=== PATIENT | female | born 2000 | race Caucasian/White ===

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

== ENCOUNTER 2021-02-12 11:56 | Outpatient (CLI) | payer MEDICAID, SELFPAY ==
--- NOTE | 2021-02-12 11:45 | DI.US_ITS ---
Exam(s) US OB 1ST TRIMESTER EXAM: US OB 1ST TRIMESTER CLINICAL HISTORY: unknown dates, no care in 2nd trimester, O09.32. TECHNIQUE: Transabdominal obstetrical ultrasound performed. COMPARISON: No exams were available for comparison FINDINGS: Transabdominal obstetrical ultrasound performed. FINDINGS: Number of fetuses: One. movement was noted. heart rate: 158 bpm. Placental location: Posterior. No evidence of previa. Amniotic fluid index: Amount of fluid is within normal limits. BIOMETRIC DATA: Uterus: 13.2 x 6.0 x 12.2 cm Biometry BPD: 2.8cm consistent with 15 weeks. HC: 10.7cm consistent with 15 weeks 1 day. AC: 8.7cm consistent with 15 weeks. FL: 1.7cm consistent with 15 weeks. Composite Age: 15 weeks EDC by US: 08/06/2021 Heart Rate: 158BPM IMPRESSION: 1. Single live intrauterine gestation as above. 2. Estimated gestational age is 15 weeks. EDC by ultrasound is 08/06/2021. DATA REPOSITORY:
== END 2021-02-12 12:16 ==
PROVIDERS: PCP Family Medicine; Visit Provider Advanced Practice Midwife
DX: O99.322 Drug use complicating pregnancy, second trimester (principal); Z3A.15 15 weeks gestation of pregnancy
CPT/HCPCS: 76801

== ENCOUNTER 2021-02-20 03:35 | Outpatient (CLI) | payer MEDICAID, SELFPAY ==
[2021-02-20 10:40] LABS: Abs Immature Grans 0.16 10^3/uL (0.0-0.06); Absolute Eosinophil Count 0.28 10^3/uL (0.0-0.7); Absolute Lymphocyte Count 2.73 10^3/uL (1.2-3.4); Absolute Monocyte Count 0.95 10^3/uL (0.1-0.8); Basophils % 0.5; Eosinophils % 2.2; HCT 36.8 % (36.0-46.0); HGB 12.3 g/dL (11.2-15.7); Immature Grans % 1.2; Kit/Specimen SENT; Lymphocytes % 21.2; MCH 30.3 pg (27.0-33.0); MCHC 33.4 % (32.0-36.0); MCV 90.6 fL (80-95); MPV 9.7 fL (8.0-11.0); Monocytes % 7.4; Neutrophils % 67.5; Nucleated RBC 0 %; Platelet Count 295 10^3/uL (130-400); RBC 4.06 10^6/uL (3.93-5.22); RDW 13.1 % (11.7-14.6); RDW-SD 43.2 fL; WBC 12.86 10^3/uL (4.4-10.8)
[2021-02-20 10:43] LABS: Absolute Basophil Count 0.06 10^3/uL (0.0-0.2); Absolute Neutrophil Count 8.68 10^3/uL (1.2-6.7)
[2021-02-20 10:47] LABS: Glucose,1 Hr (Glucola) 103 mg/dL (80-140)
[2021-02-21 08:37] LABS: Hepatitis B Surface Ag Negative (Negative)
[2021-02-21 09:35] LABS: HIV-1/2 Ag & Ab Screen Negative (Negative)
[2021-02-21 09:46] LABS: Hepatitis C Ab w Rflx HCV PCR Negative (Negative)
[2021-02-21 10:52] LABS: Rubella IgG Ab (UVM) Positive (See Note); Varicella IgG Antibody Positive (See Note)
[2021-02-22 11:03] LABS: Syphilis Total Ab w/Reflex Nonreactive (Nonreactive)
[2021-02-22 11:30] LABS: AFP 49.7 ng/mL; Calculated age at EDD 20 years; Cigarette smoking status non-Smoker; GA used in risk estimate Scan estimate; IVF Pregnancy No; Initial or repeat testing Initial testing; Insulin dependent diabetes No; Maternal Weight 163 lbs; Number of Fetuses 1; Prev Pregnancy w/NTD No; RECOMMENDED FOLLOW UP None.; Results Summary Normal risk
[2021-03-06 16:39] LABS: Result Summary NEGATIVE; Specimen WB Whole Blood
== END 2021-02-20 03:36 | disposition home or self-care (01) ==
LOC: LBO 03:35
PROVIDERS: PCP Family Medicine; Visit Provider Advanced Practice Midwife
DX: Z34.92 Encounter for supervision of normal pregnancy, unspecified, second trimester (principal); Z11.4 Encounter for screening for human immunodeficiency virus [HIV]; Z11.59 Encounter for screening for other viral diseases; Z36.89 Encounter for other specified antenatal screening; Z01.84 Encounter for antibody response examination; Z3A.16 16 weeks gestation of pregnancy
CPT/HCPCS: 36415; 82950; 86787; 86803; 86850; 86900; 86901; 87340; 87389; 81220; 82105; 85025; 86762; 86780

== ENCOUNTER 2021-02-20 11:31 | Outpatient (REF) | payer MEDICAID, SELFPAY ==
[2021-02-20 13:52] LABS: *AMPHETAMINES SCREEN URINE Negative (Negative); *BARBITURATES SCREEN URINE Negative (Negative); *BENZODIAZEPINES SCREEN URINE Negative (Negative); Cannabinoids THC Negative (Negative); Cocaine Screen,Urine Negative (Negative); METHADONE URINE SCREEN Negative (Negative); OPIATES URINE SCREEN Negative (Negative)
[2021-02-20 13:56] LABS: Tricyclic Antidepressants Negative (Negative)
[2021-02-21 16:18] LABS: Chlamydia Result Negative (Negative); GC Result Negative (Negative)
[2021-02-26 13:04] LABS: Buprenorphine Negative ng/mL (Cutoff: 5.0); Norbuprenorphine Negative ng/mL (Cutoff: 2.5)
== END 2021-02-20 11:32 | disposition home or self-care (01) ==
LOC: LBN 11:31
PROVIDERS: PCP Family Medicine; Visit Provider Advanced Practice Midwife
DX: Z34.92 Encounter for supervision of normal pregnancy, unspecified, second trimester (principal); Z11.3 Encounter for screening for infections with a predominantly sexual mode of transmission; Z3A.16 16 weeks gestation of pregnancy
CPT/HCPCS: 80307; 87491; 87591; 87086

== ENCOUNTER 2021-03-07 01:43 | Outpatient (CLI) | payer MEDICAID, SELFPAY ==
--- NOTE | 2021-03-07 08:15 | DI.US_ITS ---
Exam(s) US OB 2-3 TRIMESTER EXAM: US OB 2-3 TRIMESTER CLINICAL HISTORY: 18 wk anatomy survey,Z3A.15. TECHNIQUE: Transabdominal obstetrical ultrasound was performed. COMPARISON: US US OB 1ST TRIMESTER from 02/12/2021 FINDINGS: There is a single viable intrauterine gestation with cardiac activity identified-150 bpm. Amniotic fluid: There is a normal amount of amniotic fluid. Placental location: The placenta is posterior grade 1,with no evidence of placenta previa.Distance fr om the tip of placenta to the internal cervical os is 3.6 cm on today's study. ANATOMY: A 3 vessel umbilical cord is seen. A four-chamber cardiac view was obtained. Right and left ventricular outflow tracts were imaged. There are no obvious abnormalities of the spinal column evident. There is no obvious abnormal ity of the anterior abdominal wall. stomach and urinary bladder are identified and there is no evidence of hydronephrosis. No abnormalities of the upper lip region are identified. No evidence of choroid plexus cysts i n the brain. Dating parameters place this at approximately 18 weeks and 1 day gestational age. BPD measures 18 weeks and 1 day HC measures 18 weeks and 0 days AC measures 18 weeks and 2 days FL measures 18 weeks and 2 days Estimated weight is 230 gm-0 pounds, 8 ounces. Fetus is at the 42nd percentile on the Hadlock scale. IMPRESSION:: Single viable intrauterine gestation which is approximately 18 weeks and 1 day gestatio nal age, implying an JACOB of August 07, 2021. There are no obvious anomalies evident on today's study. The placenta is posterior with no evidence of placenta previa. There is a normal amount of amniotic fluid. DATA REPOSITORY:
== END 2021-03-07 02:03 ==
PROVIDERS: PCP Family Medicine; Visit Provider Advanced Practice Midwife
DX: Z36.9 Encounter for antenatal screening, unspecified (principal); Z3A.18 18 weeks gestation of pregnancy
CPT/HCPCS: 76805

== ENCOUNTER 2022-04-15 13:49 | Outpatient (REF) | payer MEDICAID, SELFPAY | END 2022-04-15 13:50 | disposition home or self-care (01) | LOC: LBN 13:49 | PROVIDERS: PCP Family Medicine; Visit Provider Nurse Practitioner Family | DX: J02.9 Acute pharyngitis, unspecified (principal) | CPT/HCPCS: 87070 ==

== ENCOUNTER 2022-10-02 02:42 | Outpatient (CLI) | payer MEDICAID, SELFPAY ==
[2022-10-02 15:55] LABS: Panorama Kit Sent via Fed Ex
[2022-10-02 16:09] LABS: Abs Immature Grans 0.04 10^3/uL (0.0-0.06); Absolute Basophil Count 0.06 10^3/uL (0.0-0.2); Absolute Eosinophil Count 0.22 10^3/uL (0.0-0.7); Absolute Lymphocyte Count 2.14 10^3/uL (1.2-3.4); Absolute Monocyte Count 0.45 10^3/uL (0.1-0.8); Absolute Neutrophil Count 5.82 10^3/uL (1.2-6.7); Basophils % 0.7; Eosinophils % 2.5; HCT 35.6 % (36.0-46.0); HGB 12.3 g/dL (11.2-15.7); Immature Grans % 0.5; Lymphocytes % 24.5; MCH 30.4 pg (27.0-33.0); MCHC 34.6 % (32.0-36.0); MCV 88 fL (80-95); MPV 9.9 fL (8.0-11.0); Monocytes % 5.2; Neutrophils % 66.6; Platelet Count 265 10^3/uL (130-400); RBC 4.04 10^6/uL (3.93-5.22); RDW 13.1 % (11.7-14.6); RDW-SD 41.9 fL; WBC 8.73 10^3/uL (4.4-10.8)
[2022-10-02 16:43] LABS: Glucose,1 Hr (Glucola) 184 mg/dL (80-140)
[2022-10-06 10:11] LABS: Hepatitis B Surface Ag Negative (Negative)
[2022-10-06 10:47] LABS: Rubella IgG Ab (UVM) Positive (See Note)
[2022-10-06 11:15] LABS: Hepatitis C Ab w Rflx HCV PCR Negative (Negative)
[2022-10-06 12:47] LABS: Varicella IgG Antibody Equivocal (See Note)
== END 2022-10-02 02:43 | disposition home or self-care (01) ==
LOC: LBO 02:42
PROVIDERS: PCP Family Medicine; Visit Provider Advanced Practice Midwife
DX: Z34.91 Encounter for supervision of normal pregnancy, unspecified, first trimester (principal); Z3A.11 11 weeks gestation of pregnancy
CPT/HCPCS: 36415; 82950; 86787; 86803; 86850; 86900; 86901; 87340; 85025; 86762

== ENCOUNTER 2022-10-02 16:04 | Outpatient (REF) | payer MEDICAID, SELFPAY ==
--- NOTE | 2022-10-02 14:30 | PAPFT_PTH ---
PATIENT: Ольга Beniets LOC: [facility] U#:[id number] AGE/SX: 22/F ROOM: RE10/02/[address]: Hilary Hayes : 2000 BED: DIS: 10/02/2022 SPEC #: [id number] RECD: 10/02/22 17:22 STATUS: MERNA REQ #: [id number] CHRISTINA: 10/02/22 14:[address]: Hilary Hayes DEPT[facility] Cytology RECD BY: Samaria Alatorre ENTERED: 10/02/22 17:23 SP TYPE: PAPFT OTHR DR: Norma Leslie V Tissues: 1 - CX/ENDOCX FOR PAP SMEARS Procedures: PAP THIN PREP/UVM Screening Comments: [id number]
[2022-10-02 17:21] LABS: *AMPHETAMINES SCREEN URINE Negative (Negative); *BARBITURATES SCREEN URINE Negative (Negative); *BENZODIAZEPINES SCREEN URINE Negative (Negative); Cannabinoids THC Negative (Negative); Cocaine Screen,Urine Negative (Negative); METHADONE URINE SCREEN Negative (Negative); OPIATES URINE SCREEN Negative (Negative)
[2022-10-02 17:22] LABS: Tricyclic Antidepressants Negative (Negative)
[2022-10-04 14:20] LABS: Chlamydia Result Negative (Negative); GC Result Negative (Negative)
[2022-10-08 10:41] LABS: Buprenorphine Negative ng/mL (Cutoff: 5.0); Norbuprenorphine Negative ng/mL (Cutoff: 2.5)
== END 2022-10-02 16:05 | disposition home or self-care (01) ==
LOC: LBN 16:04
PROVIDERS: PCP Family Medicine; Visit Provider Advanced Practice Midwife
DX: O26.891 Other specified pregnancy related conditions, first trimester (principal); N89.8 Other specified noninflammatory disorders of vagina; Z11.3 Encounter for screening for infections with a predominantly sexual mode of transmission; Z12.4 Encounter for screening for malignant neoplasm of cervix; Z3A.11 11 weeks gestation of pregnancy
CPT/HCPCS: 80307; 80348; 87491; 87591; 88142; 87086; 87480; 87510; 87660

== ENCOUNTER 2022-11-04 02:46 | Outpatient (CLI) | payer MEDICAID, SELFPAY ==
[2022-11-06 14:39] LABS: AFP 35.5 ng/mL; Cigarette smoking status non-Smoker; GA used in risk estimate Scan estimate; IVF Pregnancy No; Initial or repeat testing Initial testing; Insulin dependent diabetes No; Maternal Weight 174 lbs; Number of Fetuses 1; Physician Phone Number 802-748-7300; Prev Pregnancy w/NTD No; RECOMMENDED FOLLOW UP None.; Results Summary Normal risk
== END 2022-11-04 02:47 | disposition home or self-care (01) ==
LOC: LBO 02:46
PROVIDERS: Advanced Practice Midwife; PCP Family Medicine; Visit Provider Obstetrics & Gynecology
DX: Z34.92 Encounter for supervision of normal pregnancy, unspecified, second trimester (principal); Z36.89 Encounter for other specified antenatal screening; Z3A.16 16 weeks gestation of pregnancy
CPT/HCPCS: 36415; 82105

== ENCOUNTER 2022-11-19 00:39 | Outpatient (CLI) | payer MEDICAID, SELFPAY ==
--- NOTE | 2022-11-19 08:15 | DI.US_ITS ---
Exam(s) US OB 2-3 TRIMESTER EXAM: US OB 2-3 TRIMESTER CLINICAL HISTORY: ,Z34.90. TECHNIQUE: Transabdominal obstetrical ultrasound performed. COMPARISON: US US OB 2-3 TRIMESTER from 03/07/2021 FINDINGS: Number of fetuses: 1 position: Varied throughout the examination. heart rate: 148 bpm Placental location: ANTERIOR No evidence of previa. Amniotic fluid index: Amount of fluid is within normal limits. ANATOMICAL SURVEY: Within normal limits. BIOMETRIC DATA: BPD: 3.85 cm, 17 weeks 5 days HC: 15.17 cm, 18 weeks 1 day AC: 14.02 cm, 19 weeks 3 days FL: 2.88 cm, 18 weeks 6 days Cisterna magna: 4.7 mm Cerebellum: 1.72 cm EFW: 268.74 g, 0.59 lb, 86 % Composite Age: 18 weeks 4 days JACOB: 04/18/2023 Heart Rate: 148 bpm ANATOMICAL SURVEY: Four-chambered heart: Unremarkable. RVOT: Unremarkable. LVOT: Unremarkable. Three-vessel cord: Unremarkable. Cord insertion: Unremarkable. Bilateral kidneys: Unremarkable. urinary bladder: Unremarkable. Left-sided stomach: Unremarkable. spine: Unremarkable. ventricles: Unremarkable. Posterior fossa: Unremarkable Two arms and two legs: Unremarkable. nose/lips: Unremarkable. Palate: Unremarkable IMPRESSION: 1. Single live intrauterine gestation as above. 2. Normal anatomic survey. DATA REPOSITORY:
== END 2022-11-19 00:59 ==
LOC: DI 00:40
PROVIDERS: PCP Family Medicine; Visit Provider Advanced Practice Midwife
DX: Z34.90 Encounter for supervision of normal pregnancy, unspecified, unspecified trimester (principal)
CPT/HCPCS: 76805

== ENCOUNTER 2023-03-11 20:31 | Outpatient (CLI) | payer MEDICAID, SELFPAY ==
[2023-03-11 20:49] VITALS: BP 122/69; PULSE 91; RESP 18; TEMP 36.6
[2023-03-11 21:00] VITALS: PULSE 85; O2SAT 98
[2023-03-11 21:03] VITALS: BP 122/69; PULSE 95; TEMP 37.1
[2023-03-11 21:05] VITALS: PULSE 98; O2SAT 97
[2023-03-11 21:14] LABS: ROM Plus Negative
--- NOTE | 2023-03-11 21:16 | W.PM.PROGNOT ---
Date of Service Date of service: 03/11/23 Time of Service: 21:16 Assessment and Plan Assessment and plan (1) : Status: Acute Assessment and plan: at 34 weeks and 2 days. Abdominal discomfort, not in labor. Reactive nonstress test, category 1 heart rate tracing. Discharge home. Follow-up as scheduled. Labor precautions given. Subjective Subjective Interval history since last seen: Patient came to the center after she arrived to the hospital via ambulance. She called the ambulance as she was having what she perceived to be contractions. She has no leakage of fluid. The baby's been moving and active. She was seen, evaluated, ROM plus obtained, NST performed. heart rate tracing has a category 1 strip, baseline heart rate of 150, no contractions palpable or visualized. Cervical exam is closed and thick. 1+ is negative. She will be discharged home to follow-up as scheduled. Exam Const General: cooperative and no acute distress Eyes General: appearance normal, both eyes and all related structures Resp Effort & Inspection: normal respiratory effort, no audible wheezes, no cough and not labored Cardio Rate: regular rate Rhythm: regular rhythm Extrem General: normal to inspection and no clubbing, cyanosis or edema Objective Last Vital Signs Temp 97.8 F 03/11/23 20:49 Pulse 98 H 03/11/23 21:05 Resp 18 03/11/23 20:49 BP 122/69 03/11/23 20:49 Pulse Ox 97 03/11/23 21:05 Laboratory Results - last 24 hr 03/11/23 20:48 Membranes Rupture Negative Time Spent with Patient Time Spent with Patient: <25 minutes Time was spent: preparing to see the patient(eg.review tests), obtaining and/or reviewing separately otained hiistory, ordering medications,tests, procedures, referring, communicating with other health respiratory care assistant, indepentently interpreting results and counseling the patient
--- NOTE | 2023-03-11 21:27 | W.OBNST ---
Date of service: 03/11/23 Time of Service: 21:27 NST Evaluation Reason for NST Reasons for Nonstress Test: LABOR Gestational Age Gestational Age in Weeks and Days: 34 Weeks and 2Days Test and Monitor Explained Test/Monitor Explained: Test Explained Vital Signs Blood Pressure: 122/69 Pulse: 95 Temperature: 98.7 F Urine Results Urine Protein: Negative Urine Ketones: Negative Urine Glucose: Negative Urine Blood: Negative NST Information Date on Monitor: 03/11/23 Time on Monitor: 20:28 NST Interventions: PO Hydration NST Evaluation Patient States Movement: Present FHR Baseline: 150 Variability: Moderate 6-25 bpm Accelerations: 15x15 Decelerations: None NST Results: Reactive Note Ultrasound Done: N/A. NST Note Note: Reactive, category 1 NST. Not in labor NST Reviewed and Verified by: Saba Murry
[2023-03-11 21:28] VITALS: BP 122/69; PULSE 95; TEMP 37.1
--- NOTE | 2023-03-14 17:17 | W.ED.GENAD ---
Discharge Plan Disposition Patient Disposition: HOME Discharge Details Attending Provider: Saba Murry Primary Care Provider: Norma Leslie V Home Meds and New Rx's Prescriptions: No Action (DME) lancets [FreeStyle Lancets] 28 gauge misc See Rx Instructions .Route Qty: 100 4RF Rx Instructions: QID (DME) FreeStyle Lite Strips Strip See Rx Instructions .Route Qty: 100 4RF Rx Instructions: QID Vitamin Plus Low Iron 27 mg iron- 1 mg tablet 1 tab PO DAILY Qty: 90 4RF (DME) lancets 33 gauge misc See Rx Instructions .Route Qty: 100 5RF Rx Instructions: QID albuterol sulfate [ProAir HFA] 90 mcg/actuation HFA aerosol inhaler 2 puff inhalation Q6H PRN (DME) blood-glucose meter [FreeStyle Lite Meter] Kit See Rx Instructions .Route Qty: 1 0RF Rx Instructions: As directed alcohol swabs [Alcohol Pads] Pads, Medicated 1 pad topical QID Qty: 100 4RF Discharge Data Discharge Date/Time-TO BE ENTERED AT DEPARTURE: 03/11/23 20:32 Medical Decision Making 23-year-old female presents 34 weeks 's with report of contractions per EMS STREET ENGINEER was called and request for patient to go directly to labor and delivery Preliminary assessment was performed by me, patient appears in acute distress, she is dry heaving in the room, her vitals are stable, heart rate was 149 Basic external vaginal exam was performed without any obvious Confirmed with OB that patient is able to be transferred directly to the floor, she was brought up to labor and delivery for further evaluation and transferred to the care of the OB team after consent and discharge from the emergency department she will be HPI HPI Narrative: This 23-year-old female presents with EMS 34 weeks 2 para 1 with reported contractions every 2 minutes which started approximately an hour and a half ago. Patient states she is nauseous and vomiting. Denies any vaginal bleeding. Related Data Home Medications Medication Instructions Recorded Confirmed albuterol sulfate 90 mcg/actuation 2 puff inhalation Q6H PRN 01/30/21 03/09/23 aerosol inhaler (ProAir HFA) vitamin with calcium 1 tab PO DAILY #90 tabs 09/17/22 03/09/23 no.72-iron 27 mg-folic acid 1 mg tablet ( Vitamins Plus Low Iron) alcohol swabs (Alcohol Pads) 1 pad topical QID QID #100 ea 10/03/22 03/09/23 blood-glucose meter (FreeStyle #1 ea 10/03/22 03/09/23 Lite Meter kit) blood sugar diagnostic (FreeStyle #100 ea 10/24/22 03/09/23 Lite Strips) lancets 28 gauge (FreeStyle #100 ea 10/24/22 03/09/23 Lancets) lancets 33 gauge #100 ea 12/02/22 03/09/23 Previous Rx's Medication Instructions Recorded vitamin with calcium 1 tab PO DAILY #90 tabs 09/17/22 no.72-iron 27 mg-folic acid 1 mg tablet ( Vitamins Plus Low Iron) alcohol swabs (Alcohol Pads) 1 pad topical QID QID #100 ea 10/03/22 blood-glucose meter (FreeStyle #1 ea 10/03/22 Lite Meter kit) blood sugar diagnostic (FreeStyle #100 ea 10/24/22 Lite Strips) lancets 28 gauge (FreeStyle #100 ea 10/24/22 Lancets) lancets 33 gauge #100 ea 12/02/22 Allergies Allergy/AdvReac Type Severity Reaction Status Date / Time enviornmental Allergy Intermediate Itching Uncoded 03/09/23 14:52 General ILANA: 1 PFSH All Active Problems (Updated 11/19/22 @ 12:42 by Brie Ramey MD) Allergic rhinitis due to pollen (Chronic 11/30/17) ADHD (Chronic) Pt reports DX by PCP since childhood (1st grade). Dr. Lani Singleton - [facility]. New PCP @ [facility] most recent prescriber. Depression (Acute) Pt reports DX- Dr. Singleton at [facility] age 7/8 (?) Most recent prescriber through new PCP at [facility]. Vomiting (Acute) (Acute) Elevated glucose (Acute) History of gestational diabetes in prior , currently (Acute) Susceptible to varicella (non-immune), currently (Acute) Medical History (Updated 11/19/22 @ 12:42 by Brie Ramey MD) Exercise-induced asthma Surgical History No significant past surgical history Family History Maternal Grandmother Asthma Diabetes Maternal Aunt Depression Diabetes Maternal Grandfather Diabetes Maternal Aunt Heart disease Maternal Great Aunt Maternal Grandfather Hyperlipidemia Hypertension Stroke Other Breast cancer Social History Smoking/Tobacco Use Status: Never Smoking risk assessment performed?: Yes Alcohol Intake: never Drug use: Never Do you feel safe at home: Yes Do you feel safe in your relationship?: Yes Female Reproductive History Menstrual Age of Menarche: 10 control method: pills History History 2 Para 1 Hx # Term Pregnancies 1 Multiple births 0 Hx # Pregnancies 0 Ectopic pregnancies 0 AB induced 0 Hx Number of Living Children 1 AB spontaneous 0 Past Pregnancies Del. Date GA/Weeks # Preg Succ Route Wgt Sex Labor Lgth Anesthesia Location [facility] 08/05/21 39 No Yes vaginal 3118.448 g Male prodromal labor [place] [facility] [place] Date: 08/05/21 Last Updated by: Hilary Hayes CNM Gestational Diabetes Aneudy Precipitous delivery reported Course Vital Signs Vital signs: Vital Signs Temperature 36.6 C 03/11/23 20:49 Pulse 91 H 03/11/23 20:49 Respiratory Rate 18 03/11/23 20:49 Blood Pressure 122/69 03/11/23 20:49 Temperature 36.6 C 03/11/23 20:49 Temperature 37.1 C 03/11/23 21:28 Temperature Source Oral 03/11/23 20:49 Pulse 98 H 03/11/23 21:05 Pulse 95 03/11/23 21:28 Respiratory Rate 18 03/11/23 20:49 Blood Pressure 122/69 03/11/23 20:49 Blood Pressure 122/69 03/11/23 21:28 Pulse Oximetry 97 03/11/23 21:05 Oxygen Delivery Method Room Air 03/11/23 20:49 Oxygen Flow Rate 0 03/11/23 20:49 Pain Level 3 03/11/23 20:49 Lab/Test Results Lab/Test Results: Laboratory Tests Range/Units 03/11/23 20:48 Membranes Rupture Negative
== END 2023-03-11 20:32 | disposition home or self-care (01) ==
PROVIDERS: PCP Family Medicine; Visit Provider Obstetrics & Gynecology
DX: O60.03 Preterm labor without delivery, third trimester (principal); Z3A.34 34 weeks gestation of pregnancy
CPT/HCPCS: 84112; 59025; G0378

== ENCOUNTER 2023-03-27 13:57 | Outpatient (REF) | payer MEDICAID, SELFPAY | END 2023-03-27 13:58 | disposition home or self-care (01) | LOC: LBN 13:57 | PROVIDERS: PCP Family Medicine; Visit Provider Obstetrics & Gynecology Gynecology | DX: Z34.93 Encounter for supervision of normal pregnancy, unspecified, third trimester (principal); Z3A.36 36 weeks gestation of pregnancy; Z36.85 Encounter for antenatal screening for Streptococcus B | CPT/HCPCS: 87081 ==

== ENCOUNTER 2023-03-31 15:37 | Outpatient (CLI) | payer MEDICAID, SELFPAY ==
[2023-03-31 15:43] VITALS: BP 121/79; PULSE 114; TEMP 36.7
[2023-03-31 16:02] VITALS: BP 121/79; PULSE 114
[2023-03-31 16:38] LABS: ROM Plus Negative
--- NOTE | 2023-04-06 17:35 | W.OBNST ---
Date of service: 03/31/23 Time of Service: 17:36 NST Evaluation Reason for NST Reasons for Nonstress Test: OTHER, SEE COMMENT Reason for NST Other: Possible Rupture of Membranes Gestational Age Gestational Age in Weeks and Days: 37 Weeks and 1Days Test and Monitor Explained Test/Monitor Explained: Test Explained, Monitor Explained and Patient Verbalized Understanding Vital Signs Blood Pressure: 121/79 Pulse: 114 Temperature: 98.1 F Urine Results Urine Protein: Negative Urine Ketones: Positive Urine Glucose: Negative Urine Blood: Positive NST Information Date on Monitor: 03/31/23 Time on Monitor: 16:01 Date off Monitor: 03/31/23 Time off Monitor: 16:34 Total Time on Monitor: 33 NST Interventions: PO Hydration Contraction Frequency: 0 NST Evaluation Patient States Movement: Present FHR Baseline: 145 Variability: Moderate 6-25 bpm Accelerations: 15x15 Decelerations: None NST Results: Reactive Note Ultrasound Done: N/A. NST Note Note: Patient presented with concerns regarding rupture membranes. She underwent evaluation including ROM plus vaginal exam. No evidence of rupture membranes she was discharged home with instructions to follow-up for routine scheduled OB appointments. NST Reviewed and Verified by: Lia Carrasco
[2023-04-06 17:36] VITALS: BP 121/79; PULSE 114; TEMP 36.7
== END 2023-03-31 16:44 | disposition home or self-care (01) ==
LOC: BCD 15:39 → OBS 15:42
PROVIDERS: PCP Family Medicine; Visit Provider Obstetrics & Gynecology Gynecology
DX: O47.1 False labor at or after 37 completed weeks of gestation (principal); Z3A.37 37 weeks gestation of pregnancy
CPT/HCPCS: 84112; 59025

== ENCOUNTER 2023-04-13 18:30 | Outpatient (CLI) | payer MEDICAID, SELFPAY ==
[2023-04-13 19:01] VITALS: BP 117/73; PULSE 85
[2023-04-13 19:23] VITALS: BP 111/73; PULSE 65; TEMP 36.8
[2023-04-13 20:10] LABS: ROM Plus Negative
[2023-04-13 20:36] VITALS: BP 111/73; PULSE 65; TEMP 36.8
--- NOTE | 2023-04-14 05:43 | W.OBNST ---
Date of service: 04/13/23 Time of Service: 19:00 NST Evaluation Reason for NST Reasons for Nonstress Test: FALSE LABOR Gestational Age Gestational Age in Weeks and Days: 39 Weeks and 1Days Test and Monitor Explained Test/Monitor Explained: Test Explained Vital Signs Blood Pressure: 111/73 Pulse: 65 Temperature: 98.2 F NST Information Date on Monitor: 04/13/23 Time on Monitor: 18:55 Date off Monitor: 04/13/23 Time off Monitor: 19:53 Total Time on Monitor: 58 NST Interventions: None NST Evaluation Patient States Movement: Present FHR Baseline: 140 Variability: Moderate 6-25 bpm Accelerations: 15x15 Decelerations: None NST Results: Reactive Note Ultrasound Done: N/A. NST Note NST Reviewed and Verified by: Brie Ramey
[2023-04-14 05:44] VITALS: BP 111/73; PULSE 65; TEMP 36.8
== END 2023-04-13 20:30 | disposition home or self-care (01) ==
LOC: BCD 18:31 → OBS 18:59
PROVIDERS: PCP Family Medicine; Visit Provider Obstetrics & Gynecology
DX: O47.1 False labor at or after 37 completed weeks of gestation (principal); Z3A.39 39 weeks gestation of pregnancy
CPT/HCPCS: 84112; 59025

== ENCOUNTER 2023-04-16 22:43 | Inpatient (IN) | payer MEDICAID, SELFPAY ==
[2023-04-16 20:25] VITALS: BP 124/80; PULSE 88
[2023-04-16 20:26] VITALS: BP 124/80; PULSE 88; RESP 16; TEMP 36.4
[2023-04-16 20:42] VITALS: BP 124/80; PULSE 88; TEMP 36.4
[2023-04-16 21:40] LABS: ROM Plus Negative
--- NOTE | 2023-04-16 23:03 | HPE_ITS ---
Date of service: 04/16/23 Time of Service: 23:05 Assessment and Plan Assessment and plan (1) Uterine contractions: Status: Acute Assessment and plan: Pt declines pain medication. Will continue with expectant management. OB-HPI Labor/Delivery History of Present Illness Reason for Visit: NST Chief Complaint: Uterine Contractions. JACOB Calculator Estimated Delivery Date Method Current WG Current Estimate 04/20/23 Ultrasound #1 39w 3d Other Estimates 03/31/23 LMP (Uncertain) 42w 2d Comments: Pt c/o contractions mildly since this morning but they started more strongly around 7pm so she called and came in to be evaluated. She was finger tip on arrival and less than 2hr later had progressed to 5cm. No LOF or bleeding. History of Present Expected Delivery Route/Plan - elects [facility] (second baby together) Varicella immunity is equivocal, offer pt vaccination Specific Issues/Plan 1. BMI 32 - Hx of gestational diabetes. early glucola 143 on 09/09 in [facility] (not disclosed by pt) 1a. Glucola @ 11 wks, result is 184, pt declines 3 hr GTT. 10/03/22 QID CBGs. 10/24/22. All CBGs nl. Pt will test FCBG and PPCBGs one day/week. 2. Hx ADHD & depression, Rx'ed Ritalin, Focalin, citalopram & trazodone 3. cfDNA drawn 10/02 LR female, known CF carrier negative, desires AFP nl. risk 4. Asthma, uses inhaler PRN 5. Varicella immunity is equivocal; discuss w/pt, offer vaccin PP Review of Systems Narrative: Feels well in general Constitutional Constitutional: Reports system reviewed and no additional complaints, except as documented Gastrointestinal Gastrointestinal: Denies vomiting Comments: minimal nausea Genitourinary Genitourinary: Reports system reviewed and no additional complaints, except as documented PFSH All Active Problems (Updated 04/16/23 @ 23:21 by Brie Ramey MD) Uterine contractions (Acute) Low hemoglobin (Acute) Allergic rhinitis due to pollen (Chronic 11/30/17) ADHD (Chronic) Pt reports DX by PCP since childhood (1st grade). Dr. Lani Singleton - [facility]. New PCP @ [facility] most recent prescriber. Depression (Acute) Pt reports DX- Dr. Singleton at [facility] age 7/8 (?) Most recent prescriber through new PCP at [facility]. Vomiting (Acute) (Acute) Elevated glucose (Acute) History of gestational diabetes in prior , currently (Acute) Susceptible to varicella (non-immune), currently (Acute) Medical History (Updated 04/16/23 @ 23:21 by Brie Ramey MD) Exercise-induced asthma Surgical History No significant past surgical history Family History Maternal Grandmother Asthma Diabetes Maternal Aunt Depression Diabetes Maternal Grandfather Diabetes Maternal Aunt Heart disease Maternal Great Aunt Maternal Grandfather Hyperlipidemia Hypertension Stroke Other Breast cancer Social History Smoking/Tobacco Use Status: Never Smoking risk assessment performed?: Yes Alcohol Intake: never Drug use: Never Housing: apartment Do you feel safe at home: Yes Do you feel safe in your relationship?: Yes Female Reproductive History Menstrual Age of Menarche: 10 control method: pills History History 2 Para 1 Hx # Term Pregnancies 1 Multiple births 0 Hx # Pregnancies 0 Ectopic pregnancies 0 AB induced 0 Hx Number of Living Children 1 AB spontaneous 0 Past Pregnancies Del. Date GA/Weeks # Preg Succ Route Wgt Sex Labor Lgth Anesth esia Location [facility] 08/05/21 39 No Yes vaginal 6 lb 14 oz Male prodromal labor local [facility] [place] Delivery Date: 08/05/21 Last Updated by: Hilary Hayes CNM Gestational Diabetes Aneudy Precipitous delivery reported Meds Allergies and Home Medications Allergies Allergy/AdvReac Type Severity Reaction Status Date / Time enviornmental Allergy Intermediate Itching Uncoded 04/14/23 09:52 Home Medications Medication Instructions Recorded Confirmed Type albuterol sulfate 90 mcg/actuation 2 puff inhalation Q6H PRN 01/30/21 04/14/23 History aerosol inhaler (ProAir HFA) vitamin with calcium 1 tab PO DAILY #90 tabs 09/17/22 04/14/23 Rx no.72-iron 27 mg-folic acid 1 mg tablet ( Vitamins Plus Low Iron) alcohol swabs (Alcohol Pads) 1 pad topical QID QID #100 ea 10/03/22 04/14/23 Rx blood-glucose meter (FreeStyle #1 ea 10/03/22 04/14/23 Rx Lite Meter kit) blood sugar diagnostic (FreeStyle #100 ea 10/24/22 04/14/23 Rx Lite Strips) lancets 28 gauge (FreeStyle #100 ea 10/24/22 04/14/23 Rx Lancets) lancets 33 gauge #100 ea 12/02/22 04/14/23 Rx ferrous sulfate 134 mg (27 mg 134 mg PO DAILY #60 tabs 03/27/23 04/14/23 Rx iron) tablet ferrous gluconate 240 mg (27 mg 240 mg PO DAILY #60 tabs 03/31/23 04/14/23 Rx iron) tablet (Ferate) Exam Physical Exam Vital signs: Temp Pulse Resp BP 97.6 F 88 16 124/80 04/16/23 20:04/16/23 20:26 04/16/23 20:04/16/23 20:26 Vital Signs Reviewed: Yes Detailed Labor and Delivery Exam Dilation: 5 Effacement (%): 80 station: -2 Consistency: soft Esparza Score: Cervical Points Exam 0 1 2 3 Dilation Closed 1-2cm 3-4 cm 5-6cm Effacement 0-30% 40-50% 60-70% 80% Consistency Firm Medium Soft Station -3 -2 -1,0 +1,+2 Position Posterior Mid Anterior Fetus A Heart Rate Baseline: 150 Monitor Accelerations: Present Monitor Decelerations: None Variability: Moderate (6-25 BPM) Categories: Category I Detailed HEENT Exam Head: Present normocephalic and atraumatic Detailed Abdominal Exam Comments: gravid, nontender Detailed Neurological Exam Neurological: Present alert, oriented X3 and CN II-XII intact DetailedPsychiatric Exam Psychiatric: Present normal affect, normal thought process and cooperative Results Results Group Beta Strep: Negative Blood Type: O+ Rubella Status: Immune Varicella Immunity: Equivocal Risk Assessment Risk for Shoulder Dystocia Historical/Initial OB: POSITIVE FOR: Pre- BMI>30; NEGATIVE FOR: Pelvic Abnormality, Previous Shoulder Dystocia or Previous Macrosomia Risk for Pre-Eclampsia Yes, if one or more: NEGATIVE FOR: Hx Pre-E/Gest HTN, Chronic HTN, Multiple Gestation, Pre-gestational DM, Renal Disease, Systemic Lupus or APA Syndrome Yes, if 2 or more: POSITIVE FOR: BMI>30; NEGATIVE FOR: Nulliparity, Age>= 35 yrs, >10yr btwn pregnancies, ethinicty, Mother/Sister w/ Pre-E or Previous IUGR Risk for Post- Hemorrhage Initial: NEGATIVE FOR: Multiple Gestation, Previous PPH, Known Clotting Deficiency, Grand Multiparity or Anticoagulation Risks Reviewed Risks Reviewed Upon Admission: Yes
[2023-04-16 23:09] VITALS: BP 124/80; PULSE 88; RESP 16; TEMP 36.4
[2023-04-16 23:09] LABS: HCT 36.6 % (36.0-46.0); MCH 28.5 pg (27.0-33.0); MCHC 32.8 % (32.0-36.0); MCV 87 fL (80-95); MPV 10.2 fL (8.0-11.0); Platelet Count 263 10^3/uL (130-400); RBC 4.21 10^6/uL (3.93-5.22); RDW 14.3 % (11.7-14.6); RDW-SD 44.9 fL; WBC 10.82 10^3/uL (4.4-10.8)
--- NOTE | 2023-04-16 23:23 | W.OBNST ---
Date of service: 04/16/23 Time of Service: 23:24 NST Evaluation Reason for NST Reasons for Nonstress Test: FALSE LABOR Gestational Age Gestational Age in Weeks and Days: 39 Weeks and 3Days Test and Monitor Explained Test/Monitor Explained: Test Explained Vital Signs Blood Pressure: 124/80 Pulse: 88 Temperature: 97.6 F Urine Results Urine Protein: Negative Urine Ketones: Negative Urine Glucose: Negative Urine Blood: Negative NST Information Date on Monitor: 04/16/23 Time on Monitor: 20:00 Date off Monitor: 04/16/23 Time off Monitor: 20:44 Total Time on Monitor: 44 NST Interventions: None Contraction Frequency: 5-6 NST Evaluation Patient States Movement: Decreased FHR Baseline: 150 Variability: Moderate 6-25 bpm Accelerations: 15x15 Decelerations: None NST Results: Reactive Note Ultrasound Done: N/A. NST Note NST Reviewed and Verified by: Brie Ramey
[2023-04-16 23:24] VITALS: BP 124/80; PULSE 88; TEMP 36.4
[2023-04-16 23:39] VITALS: BP 124/77; PULSE 83; TEMP 36.8
[2023-04-17] VITALS (18 sets, daily range): BP systolic 105–154; BP diastolic 54–86; PULSE 75–98; RESP 16; TEMP 36.3–37.7; O2SAT 97–98
--- NOTE | 2023-04-17 00:02 | PGE_ITS ---
Date of service: 04/17/23 Time of Service: 00:02 Pelvic Exam Dilation: 5 Effacement (%): 80 station: -2 Cervix Position: posterior Consistency: medium Fetus A Heart Rate Baseline: 140 Presentation: Vertex Variability: Moderate (6-25 BPM) Categories: Category I Accelerations: 15 X 15 Decelerations: None Amniotic Membrane Status: Ruptured Rupture Method: Artifical Amniotic Fluid: Clear (Small amount) and [place] Tinged Assessment and Plan Assessment and plan (1) Uterine contractions: Status: Acute Assessment and plan: Underwent artificial rupture of membranes. Will continue with expectant management and recheck the cervix in several hours if no obvious change in labor pattern. Objective Abnormal lab results 04/16/23 Range/Units 23:00 WBC 10.82 H (4.4-10.8) 10^3/uL Temp Pulse Resp BP 98.3 F 83 16 124/77 04/16/23 23:39 04/16/23 23:39 04/16/23 23:09 04/16/23 23:39 Laboratory Results WBC 10.82 10^3/uL (4.4-10.8) H 04/16/23 23:00 RBC 4.21 10^6/uL (3.93-5.22) 04/16/23 23:00 Hgb 12.0 g/dL (11.2-15.7) 04/16/23 23:00 Hct 36.6 % (36.0-46.0) 04/16/23 23:00 MCV 87 fL (80-95) 04/16/23 23:00 MCH 28.5 pg (27.0-33.0) 04/16/23 23:00 MCHC 32.8 % (32.0-36.0) 04/16/23 23:00 RDW 14.3 % (11.7-14.6) 04/16/23 23:00 Plt Count 263 10^3/uL (130-400) 04/16/23 23:00 MPV 10.2 fL (8.0-11.0) 04/16/23 23:00 Membranes Rupture Negative 04/16/23 20:15 Patient ABO/Rh O Positive 04/16/23 23:00 Antibody Screen NEGATIVE 04/16/23 23:00 Vital Signs Reviewed: Yes Subjective Interval history since last seen: Pt getting more uncomfortable with ctxs and interested in a cervical exam Results Hemoglobin/Hematocrit: Hgb 12.0 g/dL (11.2-15.7) 04/16/23 23:00 Hct 36.6 % (36.0-46.0) 04/16/23 23:00 Abnormal Lab Findings: Abnormal Labs 04/16/23 23:00 WBC 10.82 H
--- NOTE | 2023-04-17 02:06 | W.OBDELIVERY ---
Date of service: 04/17/23 Time of Service: 01:52 OB Labor/ Delivery Information Baby A Delivery Delivery Method: Spontaneaous Presentation: Cephalic Vertex Position: Left Occipital Anterior Cord Description-Baby A: 3 Vessels Amniotic Fluid: Clear Estimated Blood Loss: 100 Delivery Outcome: Liveborn Transferred: Remains with Mother Note: The pt was 8-9cm and began pushing involuntarily. She turned onto hands and knees and pushed 5mins to deliver the infant's head in NE position followed by the right arm, the shoulders and the rest of the body. The baby was placed on mom's abdomen. After >1min the cord was clamped x2 and cut. Cord blood collected. The placenta delivered with gentle cord traction and fundal massage and appeared intact. Fundus was firm with good hemostasis. No lacerations noted. Mom and baby stable at time of note. Providers Doctor: Brie Ramey Nurse: Indigo Fontana Nurse: Zandra Underwood Labor/Delivery Information Number of Babies in Womb: 1 Steroids Given: None Reason Steroids Not Administered: N/A Group Beta Strep: Negative Antibiotics Administered: No Rubella Status: Immune Blood Type: O+ Varicella Immunity: Equivocal Maternal Complications: None Shoulder Dystocia: No Stages of Labor Onset of Labor Date: 04/16/23 Onset of Labor Time: 08:30 ROM Baby A: 04/17/23 ROM Baby A: 00:05 ROM Total Time- Baby A: [id number] Infant Delivery Date-Baby A: 04/17/23 Infant Delivery Time-Baby A: 01:52 Placenta Delivery Date-Baby A: 04/17/23 Placenta Delivery Time-Baby A: 01:56 Labor-Stage 3 Duration: 4 minutes Total Length of Labor-Baby A: 17 hours and 22 minutes Placenta Cultured: No Placenta Status: Delivered Baby A Infant Gender: Female Gestational Status: Term (39-41.6 wks) Gestational Age in Weeks/Days: 39 Weeks and 4 Days Note: EDIT ROM total time: 1hr 47min
[2023-04-17] MEDS: Acetaminophen 325 MG TAB 650 MG PO ×3 (02:20→19:24)
[2023-04-17] MEDS: Ibuprofen 600 MG TAB PO ×3 (02:20→19:24)
[2023-04-17] MEDS: Oxytocin 10 UNITS/ML VIAL IM (02:21)
[2023-04-17] MEDS: Dibucaine 1% 28 GM TUBE TP ×2 (03:00→15:41)
[2023-04-17] MEDS: Hamamelis Leaf/Glycerin 100 EACH BOX PR (03:00)
[2023-04-18 07:55] VITALS: BP 123/83; PULSE 78; RESP 16; TEMP 36.7; O2SAT 97
[2023-04-18] MEDS: Acetaminophen 325 MG TAB 650 MG PO ×2 (08:02→15:47)
[2023-04-18] MEDS: Ibuprofen 600 MG TAB PO ×2 (08:02→15:48)
[2023-04-18] MEDS: Varicella Virus Vaccine (Live) 0.5 ML SC (09:53)
[2023-04-18 11:35] VITALS: BP 127/85; PULSE 83; RESP 16; TEMP 36.3; O2SAT 97
[2023-04-18 19:35] VITALS: BP 125/85; PULSE 86; RESP 16; TEMP 36.6; O2SAT 97
[2023-04-19 08:30] VITALS: BP 135/90; PULSE 87; RESP 16; TEMP 36.4; O2SAT 98
[2023-04-19] MEDS: Acetaminophen 325 MG TAB 650 MG PO (08:34)
[2023-04-19] MEDS: Ibuprofen 600 MG TAB PO (08:34)
--- NOTE | 2023-04-19 09:09 | W.PM.OBPNV1 ---
Date of service: 04/18/23 Time of Service: 10:00 Assessment and Plan Assessment and plan (1) Vaginal delivery: Status: Acute Assessment and plan: PPD 2 . No complications. Pt requests to remain hospitalized another day while infant is being observed for elevated bilirubin. Subjective Subjective Interval history: PPD1 . No complications. Patient comments: No complaints, Pain well controlled and Tolerating diet Patient's Mood: Happy baby status: Doing well, Nursing well and Bottle feeding well feeding status: Exclusively breast feeding Exam Physical Exam Vital signs: Temp Pulse Resp BP Pulse Ox 97.5 F L 87 16 135/90 98 04/19/23 08:30 04/19/23 08:30 04/19/23 08:30 04/19/23 08:30 04/19/23 08:30 Vital Signs Reviewed: Yes Narrative: PPD1 Unmedicated w/o complications. 's biiirubin is elevated and will probably remain hospitalized. Pt requests to stay inpatient another day. Constitutional Constitutional: no acute distress HEENT Exam HEENT Exam: Not Done Neck Exam Neck Exam: Not Done Respiratory Exam Respiratory Exam: Normal Cardiovascular Exam Cardiovascular Exam: Normal (no LE edema) Abdominal Exam Abdomen: Tender Fundal Exam Fundus: Below Umbilicus Rectal Exam Rectal Exam: Not Done Extremities Exam Extremity Exam: Normal, Full ROM and Warm to Touch Back/Spine/Pelvis Exam Back Exam: Normal Skin Exam Skin Exam: Normal Neurological Exam Neurological Exam: Normal Psychiatric Exam Psychiatric Exam: Normal Results Hemoglobin/Hematocrit: Hgb 12.0 g/dL (11.2-15.7) 04/16/23 23:00 Hct 36.6 % (36.0-46.0) 04/16/23 23:00 Abnormal Lab Findings: Abnormal Labs 04/16/23 23:00 WBC 10.82 H
--- NOTE | 2023-04-19 09:17 | DSE_ITS ---
Date of service: 04/19/23 Time of Service: 09:17 DS: Diagnosis Discharge Diagnosis (1) Vaginal delivery: Status: Acute Discharge Plan Disposition Patient Disposition: Home Condition: Good Discharge Details Reason For Visit: Term Labor Admit Date/Time: 04/16/23 22:43 Admit Provider: Brie Ramey Attending Provider: Brie Ramey Primary Care Provider: Norma Leslie V Hospital Course Hospital Course: Patient was admitted in labor went on to have a on medicated spontaneous vaginal delivery without complications. Discharged border status on hospital day #2 successfully breast-feeding. Her infant remained hospitalized secondary to bilirubin issues. Patient was instructed to stop glucose testing Home Meds and New Rx's Prescriptions: Discontinued (DME) lancets [FreeStyle Lancets] 28 gauge misc See Rx Instructions .Route Qty: 100 4RF Rx Instructions: QID (DME) FreeStyle Lite Strips Strip See Rx Instructions .Route Qty: 100 4RF Rx Instructions: QID (DME) lancets 33 gauge misc See Rx Instructions .Route Qty: 100 5RF Rx Instructions: QID (DME) blood-glucose meter [FreeStyle Lite Meter] Kit See Rx Instructions .Route Qty: 1 0RF Rx Instructions: As directed alcohol swabs [Alcohol Pads] Pads, Medicated 1 pad topical QID Qty: 100 4RF No Action ferrous gluconate [Ferate] 240 mg (27 mg iron) tablet 240 mg PO DAILY Qty: 60 3RF Vitamin Plus Low Iron 27 mg iron- 1 mg tablet 1 tab PO DAILY Qty: 90 4RF albuterol sulfate [ProAir HFA] 90 mcg/actuation HFA aerosol inhaler 2 puff inhalation Q6H PRN ferrous sulfate 134 mg (27 mg iron) tablet 134 mg PO DAILY Qty: 60 4RF Discharge Instructions Additional Instructions: You are now on boarder status. That means you will receive meals but any medication you take you need to bring in from home. I recommend that you use [id number] ibuprofen: (Motrin) 200 mg tablet. You may take up to 3 tablets of the ibuprofen every 6 hours. You may bring in acetaminophen 325 mg tablet 1 tablet every 6 hours as needed for pain. Have the nurses make an appointment [facility] you can stop testing your sugar. Stand Alone Forms: BC Instructions, Post Vaginal Deliver Activity:: Activity as Tolerated Equipment/Supplies:: No Equipment Needed Diet:: As Tolerated Discharge Orders Discharge Orders: Discharge Order (Routine); Ordered 04/19/23 Ordered By: Lia Carrasco Discharge Data Discharge Comment: Patient discharged to [facility] status OB:DS Summary Summary Vaginal Delivery Method: Spontaneaous Episiotomy Description: None Laceration Description: None Laceration Extension: N/A Contraception Discussed Contraception Discussed: Yes Contraceptive Plan: Medroxyprogesterone (Or prog esterone OCP while breast-feeding), Infant Gender-Baby A: Female (Her parents intended to name her Marielos) weight: 7 lb 7.931 oz Status at Discharge Functional status at discharge: independent ambulation Overall status at discharge: patient is back to baseline Mental Status: mental status grossly normal Speech and Movement: speech and movement normal Mood: congruent mood Affect: normal affect Time Spent with Patient providing and/or coordinating discharge services: Less than 30 minutes Exam Physical Exam Vital signs: Temp Pulse Resp BP Pulse Ox 97.5 F L 87 16 135/90 98 04/19/23 08:30 04/19/23 08:30 04/19/23 08:30 04/19/23 08:30 04/19/23 08:30 Vital Signs Reviewed: Yes Constitutional Constitutional: no acute distress HEENT Exam HEENT Exam: Normal Neck Exam Neck Exam: Normal Respiratory Exam Respiratory Exam: Normal Cardiovascular Exam Cardiovascular Exam: Normal Abdominal Exam Comments: No focal tenderness. Fundal Exam Comment: FF@U/1. Extremities Exam Extremity Exam: Normal Back/Spine/Pelvis Exam Back Exam: Normal Skin Exam Skin Exam: Normal Neurological Exam Neurological Exam: Normal Psychiatric Exam Psychiatric Exam: Normal PFSH All Active Problems (Updated 04/19/23 @ 09:13 by Lai Carrasco MD) Vaginal delivery (Acute) Allergic rhinitis due to pollen (Chronic 11/30/17) ADHD (Chronic) Pt reports DX by PCP since childhood (1st grade). Dr. Lani Singleton - [facility]. New PCP @ [facility] most recent prescriber. Depression (Acute) Pt reports DX- Dr. Singleton at [facility] age 7/8 (?) Most recent prescriber through new PCP at [facility]. Vomiting (Acute) (Acute) Elevated glucose (Acute) History of gestational diabetes in prior , currently (Acute) Susceptible to varicella (non-immune), currently (Acute) Low hemoglobin (Acute) Uterine contractions (Acute) Medical History (Updated 04/19/23 @ 09:13 by Lia Carrasco MD) Exercise-induced asthma Surgical History No significant past surgical history Family History Maternal Grandmother Asthma Diabetes Maternal Aunt Depression Diabetes Maternal Grandfather Diabetes Maternal Aunt Heart disease Maternal Great Aunt Maternal Grandfather Hyperlipidemia Hypertension Stroke Other Breast cancer Social History Smoking/Tobacco Use Status: Never Smoking risk assessment performed?: Yes Alcohol Intake: never Drug use: Never Housing: apartment Do you feel safe at home: Yes Do you feel safe in your relationship?: Yes Female Reproductive History Menstrual Age of Menarche: 10 control method: pills History History 2 Para 2 Hx # Term Pregnancies 2 Multiple births 0 Hx # Pregnancies 0 Ectopic pregnancies 0 AB induced 0 Hx Number of Living Children 2 AB spontaneous 0 Past Pregnancies Del. Date GA/Weeks # Preg Succ Route Wgt Sex Labor Lgth Anesth esia Location [facility] 08/05/21 39 No Yes vaginal 6 lb 14 oz Male prodromal labor local [facility] 04/17/23 39 No Yes vaginal 7 lb 7.931 oz Female LB Delivery Date: 08/05/21 Last Updated by: Hilary Hayes CNM Gestational Diabetes Aneudy Precipitous delivery reported Delivery Date: 04/17/23 Last Updated by: MD Marielos Alba DS: Data Vitals/I&O Vitals and I&O: Vital Signs Temperature 97.5 F L 04/19/23 08:30 Temperature 97.6 F 04/16/23 23:24 Temperature Source Oral 04/19/23 08:30 Pulse 87 04/19/23 08:30 Pulse 88 04/16/23 23:24 Pulse Rhythm Regular 04/19/23 08:30 Respiratory Rate 16 04/19/23 08:30 Respiratory Depth Normal 04/18/23 19:35 Blood Pressure 135/90 04/19/23 08:30 Blood Pressure 124/80 04/16/23 23:24 Blood Pressure Mean 105 04/19/23 08:30 Pulse Oximetry 98 04/19/23 08:30 Oxygen Delivery Method Room Air 04/16/23 23:09 Oxygen Flow Rate 0 04/16/23 23:09 Pain Level 6 04/19/23 08:34 Intake & Output 04/18/23 04/18/23 04/19/23 11:59 23:59 11:59 Other: Urine Color Yellow
== END 2023-04-19 10:40 | disposition home or self-care (01) | DRG 807 ==
LOC: OBS 04-17 08:52 → BCD 04-17 10:15
PROVIDERS: Admitting Provider Obstetrics & Gynecology; PCP Family Medicine; Visit Provider Obstetrics & Gynecology
DX: O80 Encounter for full-term uncomplicated delivery (principal); Z37.0 Single live birth; Z3A.39 39 weeks gestation of pregnancy; O99.52 Diseases of the respiratory system complicating childbirth; J45.909 Unspecified asthma, uncomplicated; O99.344 Other mental disorders complicating childbirth; F32.A Depression, unspecified; F90.9 Attention-deficit hyperactivity disorder, unspecified type
CPT/HCPCS: 84112; 85027; 86850; 86900; 86901; 59025; J2590

== ENCOUNTER 2023-04-21 19:54 | Emergency (ER) | payer MEDICAID, SELFPAY ==
[2023-04-21 19:56] VITALS: BP 116/77; PULSE 90; RESP 18; TEMP 36.7; O2SAT 97
[2023-04-21] MEDS: Ketorolac 15 MG/ML VIAL IM (20:38)
[2023-04-21] MEDS: Acetaminophen 500 MG TAB 1000 MG PO (20:38)
[2023-04-21 20:44] LABS: Abs Immature Grans 0.05 10^3/uL (0.0-0.06); Absolute Basophil Count 0.06 10^3/uL (0.0-0.2); Absolute Lymphocyte Count 2.36 10^3/uL (1.2-3.4); Absolute Neutrophil Count 7.35 10^3/uL (1.2-6.7); Basophils % 0.5; Eosinophils % 2.7; HCT 34.7 % (36.0-46.0); HGB 11.6 g/dL (11.2-15.7); Immature Grans % 0.5; Lymphocytes % 21.4; MCH 28.7 pg (27.0-33.0); MCHC 33.4 % (32.0-36.0); MCV 86 fL (80-95); MPV 9.1 fL (8.0-11.0); Monocytes % 8.2; Neutrophils % 66.7; Platelet Count 295 10^3/uL (130-400); RBC 4.04 10^6/uL (3.93-5.22); RDW 14.6 % (11.7-14.6); RDW-SD 45.6 fL; WBC 11.02 10^3/uL (4.4-10.8)
[2023-04-21 21:00] LABS: ALT 35 U/L (14-59); AST 27 U/L (15-37); Albumin 2.8 g/dL (3.4-5.0); Alkaline Phosphatase 167 U/L (46-116); Anion Gap 10.5 mmol/L (3-11); BUN 11 mg/dL (7-18); Bilirubin, Total 0.3 mg/dL (0.2-1.0); CO2 23.5 mmol/L (21.0-32.0); CREATININE 0.7 mg/dL (0.55-1.02); Calcium 8.9 mg/dL (8.5-10.1); Chloride 104 mmol/L (98-107); Estimated GFR 125.33 (mL/min/1.73m2); Glucose 93 mg/dL (74-106); Potassium 3.8 mmol/L (3.5-5.1); Sodium 138 mmol/L (136-145); Total Protein 6.8 g/dL (6.4-8.2)
[2023-04-21 21:10] LABS: Bilirubin Negative (Negative); Blood Large (Negative); Clarity Clear (Clear); Glucose Negative (Negative); Ketones 15 mg/dL (Negative); Leukocyte Esterase Small (Negative); Nitrite Negative (Negative); Specific Gravity 1.025 (1.005-1.025); Urobilinogen 0.2 mg/dL (Up to 0.2); pH 6.5 (5-8)
[2023-04-21 21:21] LABS: Bacteria Rare HPF (Negative); C & S Indicated? Yes; Casts Negative LPF (Negative); Crystals Negative HPF (Negative); Epithelial Cells Rare HPF (Negative); Mucus Trace (Negative); Other Cells Rare Transitional (Negative)
--- NOTE | 2023-04-21 22:21 | W.ED.GENAD ---
Discharge Plan Disposition Patient Disposition: Home Condition: Good Discharge Details Clinical Impression: Uterine cramping, complication Primary Care Provider: Norma Leslie V ED Provider: Lesia Kapadia Home Meds and New Rx's Prescriptions: No Action ferrous gluconate [Ferate] 240 mg (27 mg iron) tablet 240 mg PO DAILY Qty: 60 3RF Vitamin Plus Low Iron 27 mg iron- 1 mg tablet 1 tab PO DAILY Qty: 90 4RF albuterol sulfate [ProAir HFA] 90 mcg/actuation HFA aerosol inhaler 2 puff inhalation Q6H PRN ferrous sulfate 134 mg (27 mg iron) tablet 134 mg PO DAILY Qty: 60 4RF Discharge Instructions Instructions: Bleeding (ED) Additional Instructions: Take ibuprofen over the counter around the clock for the next three days for pain; follow the directions on the bottle for dosing. Call your APPLIED BIOLOGY PROFESSOR tomorrow to discuss your visit today and to schedule a followup appointment. Return to the emergency department for new or worsening symptoms, including fever, bleeding through a pad in less than a hour, passing clots larger than a golf ball, or uncontrolled pain. Medical Decision Making 23yo F presenting 4 days after uncomplicated vaginal delivery with lower abdominal pain. Vital signs and physical exam reassuring. Post- bleeding within normal limits. Nothing to suggest retained products of conception or endometritis. Exam not concerning for acute intrabdominal/intrapelvic process (appendicitis, ovarian torsion, etc)> Will treat for presumed uterine cramping with tylenol and toradol. CBC & CMP reassuring, no anemia. UA without infection. On reassessment she reports her pain has resolved. Bleeding remains minimal. Discharged home; discharge instructions including return precautions were reviewed with patient who verbalized understanding. Alll questions were answered and they are in full agreement with the plan. Lab Data Lab results reviewed: Yes I reviewed the patient's lab results. Labs: 04/21/23 21:00 Urine - Reflex from Ua Urine Culture - Pending Laboratory Tests Range/Units 04/21/23 04/21/23 04/21/23 20:36 20:36 21:00 WBC (4.4-10.8) 10^3/uL 11.02 H RBC (3.93-5.22) 10^6/uL 4.04 Hgb (11.2-15.7) g/dL 11.6 Hct (36.0-46.0) % 34.7 L MCV (80-95) fL 86 MCH (27.0-33.0) pg 28.7 MCHC (32.0-36.0) % 33.4 RDW (11.7-14.6) % 14.6 Plt Count (130-400) 10^3/uL 295 MPV (8.0-11.0) fL 9.1 Immature Gran % 0.5 Neutrophils % 66.7 Lymphocytes % 21.4 Monocytes % 8.2 Eosinophils % 2.7 Basophils % 0.5 Nucleated RBC % (0.0-0.3) % 0.0 Absolute Neutrophils (1.2-6.7) 10^3/uL 7.35 H Absolute Lymphocytes (1.2-3.4) 10^3/uL 2.36 Absolute Monocytes (0.1-0.8) 10^3/uL 0.90 H Absolute Eosinophils (0.0-0.7) 10^3/uL 0.30 Absolute Basophils (0.0-0.2) 10^3/uL 0.06 Sodium (136-145) mmol/L 138 Potassium (3.5-5.1) mmol/L 3.8 Chloride (98-107) mmol/L 104 Carbon Dioxide (21.0-32.0) mmol/L 23.5 Anion Gap (3-11) mmol/L 10.5 BUN (7-18) mg/dL 11 Creatinine (0.55-1.02) mg/dL 0.7 Est GFR (CKD-EPI 2020) (mL/min/1.73m2) 125.33 Glucose (74-106) mg/dL 93 Calcium (8.5-10.1) mg/dL 8.9 Total Bilirubin (0.2-1.0) mg/dL 0.3 AST (15-37) U/L 27 ALT (14-59) U/L 35 Alkaline Phosphatase (46-116) U/L 167 H Total Protein (6.4-8.2) g/dL 6.8 Albumin (3.4-5.0) g/dL 2.8 L Urine Color (Yellow) Yellow Urine Clarity (Clear) Clear Urine pH (5-8) 6.5 Ur Specific [place] (1.005-1.025) 1.025 Urine Protein (Negative) mg/dL Trace H Urine Ketones (Negative) mg/dL 15 H Urine Blood (Negative) Large H Urine Nitrite (Negative) Negative Urine Bilirubin (Negative) Negative Urine Urobilinogen (Up to 0.2) mg/dL 0.2 Ur Leukocyte Esterase (Negative) Small H Urine RBC (0-2) HPF 10-20 H Urine WBC (0-5) HPF 3-5 Ur Epithelial Cells (Negative) HPF Rare Urine Crystals (Negative) HPF Negative Urine Bacteria (Negative) HPF Rare Urine Casts (Negative) LPF Negative Urine Mucus (Negative) Trace Urine Other (Negative) Rare Transitional Ur Culture Indicated? Yes Urine Glucose (Negative) mg/dL Negative HPI General Mode of arrival: ambulatory. Date/Time Provider Initiated Documentation: 04/21/23 20:04. Limitations to Documentation: no limitations. Information obtained by: patient. HPI Narrative: 23yo F presenting 4 days after uncomplicated vaginal delivery with lower abdominal pain. Delivery went well, no lacerations, no issues with placenta. Has had red post- lochia since then, changing pad every 3-4 hours, occasional quarter sized clots, not malodorous. Has been taking ibuprofen at home intermittently for symptoms, last at noon today. Pain worsening this evening to the point where it feels like she is back in labor. Associated nausea, no vomiting. No dysuria. No fevers. She is otherwise in her usual state of health; no fevers, chills, rash, lightheadedness, or other concerns. Related Data Home Medications Medication Instructions Recorded Confirmed albuterol sulfate 90 mcg/actuation 2 puff inhalation Q6H PRN 01/30/21 04/21/23 aerosol inhaler (ProAir HFA) vitamin with calcium 1 tab PO DAILY #90 tabs 09/17/22 04/16/23 no.72-iron 27 mg-folic acid 1 mg tablet ( Vitamins Plus Low Iron) ferrous sulfate 134 mg (27 mg 134 mg PO DAILY #60 tabs 03/27/23 04/16/23 iron) tablet ferrous gluconate 240 mg (27 mg 240 mg PO DAILY #60 tabs 03/31/23 04/21/23 iron) tablet (Ferate) Previous Rx's Medication Instructions Recorded vitamin with calcium 1 tab PO DAILY #90 tabs 09/17/22 no.72-iron 27 mg-folic acid 1 mg tablet ( Vitamins Plus Low Iron) ferrous sulfate 134 mg (27 mg 134 mg PO DAILY #60 tabs 03/27/23 iron) tablet ferrous gluconate 240 mg (27 mg 240 mg PO DAILY #60 tabs 03/31/23 iron) tablet (Ferate) Allergies Allergy/AdvReac Type Severity Reaction Status Date / Time enviornmental Allergy Intermediate Itching Uncoded 04/21/23 20:10 General Stated Complaint: APPLIED BIOLOGY PROFESSOR ILANA: 3 Review of Systems Narrative: see HPI PFSH All Active Problems (Updated 04/21/23 @ 22:24 by Lesia Kapadia MD) Uterine cramping (Acute) complication (Acute) Vaginal delivery (Acute) Allergic rhinitis due to pollen (Chronic 11/30/17) ADHD (Chronic) Pt reports DX by PCP since childhood (1st grade). Dr. Lani Singleton - [facility]. New PCP @ [facility] most recent prescriber. Depression (Acute) Pt reports DX- Dr. Singleton at [facility] age 7/8 (?) Most recent prescriber through new PCP at [facility]. Vomiting (Acute) (Acute) Elevated glucose (Acute) History of gestational diabetes in prior , currently (Acute) Susceptible to varicella (non-immune), currently (Acute) Low hemoglobin (Acute) Medical History (Updated 04/21/23 @ 22:24 by Lesia Kapadia MD) Exercise-induced asthma Surgical History No significant past surgical history Family History Maternal Grandmother Asthma Diabetes Maternal Aunt Depression Diabetes Maternal Grandfather Diabetes Maternal Aunt Heart disease Maternal Great Aunt Maternal Grandfather Hyperlipidemia Hypertension Stroke Other Breast cancer Social History Smoking/Tobacco Use Status: Never Smoking risk assessment performed?: Yes Alcohol Intake: never Drug use: Never Substance use type: does not use Housing: apartment Do you feel safe at home: Yes Do you feel safe in your relationship?: Yes Female Reproductive History Menstrual Age of Menarche: 10 control method: pills History History 2 Para 2 Hx # Term Pregnancies 2 Multiple births 0 Hx # Pregnancies 0 Ectopic pregnancies 0 AB induced 0 Hx Number of Living Children 2 AB spontaneous 0 Past Pregnancies Del. Date GA/Weeks # Preg Succ Route Wgt Sex Labor Lgth Anesthesia Location Prov Complic 08/05/21 39 No Yes vaginal 3118.448 g Male prodromal labor local [facility] [place] 04/17/23 39 No Yes vaginal 3400 g Female LB Delivery Date: 08/05/21 Last Updated by: Hilary Hayes CNM Gestational Diabetes Aneudy Precipitous delivery reported Delivery Date: 04/17/23 Last Updated by: Lia Carrasco MD Marielos Exam Narrative Exam Narrative: General: Alert, well appearing, well nourished Head: Normocephalic, atraumatic Neck: Trachea midline, Neck supple. Cardiac: RRR, no murmurs appreciated Resp: No respiratory distress. CTAB. Abd: Soft, non-distended, nontender : Fundus firm, 4-5 fingerbreadths below umbilicus. No bleeding or clots expressed with fundal massage. Scant lochia rubra on pad. Extremities: No deformities. No peripheral edema. Neurologic: GCS 15. Moves all extremities freely against gravity Course Vital Signs Vital signs: Vital Signs Temperature 36.7 C 04/21/23 19:56 Pulse 90 04/21/23 19:56 Respiratory Rate 18 04/21/23 19:56 Blood Pressure 116/77 04/21/23 19:56 Pulse Oximetry 97 04/21/23 19:56 Temperature 36.7 C 04/21/23 19:56 Temperature Source Temporal Artery Scan 04/21/23 19:56 Pulse 90 04/21/23 19:56 Respiratory Rate 18 04/21/23 19:56 Respiratory Effort Normal 04/21/23 20:01 Blood Pressure 116/77 04/21/23 19:56 Pulse Oximetry 97 04/21/23 19:56 Oxygen Delivery Method Room Air 04/21/23 19:56 Oxygen Flow Rate 0 04/21/23 19:56 Pain Level 10 04/21/23 20:05 Lab/Test Results Lab/Test Results: 04/21/23 21:00 Urine - Reflex from Ua Urine Culture - Pending Laboratory Tests Range/Units 04/21/23 04/21/23 04/21/23 20:36 20:36 21:00 WBC (4.4-10.8) 10^3/uL 11.02 H RBC (3.93-5.22) 10^6/uL 4.04 Hgb (11.2-15.7) g/dL 11.6 Hct (36.0-46.0) % 34.7 L MCV (80-95) fL 86 MCH (27.0-33.0) pg 28.7 MCHC (32.0-36.0) % 33.4 RDW (11.7-14.6) % 14.6 Plt Count (130-400) 10^3/uL 295 MPV (8.0-11.0) fL 9.1 Immature Gran % 0.5 Neutrophils % 66.7 Lymphocytes % 21.4 Monocytes % 8.2 Eosinophils % 2.7 Basophils % 0.5 Nucleated RBC % (0.0-0.3) % 0.0 Absolute Neutrophils (1.2-6.7) 10^3/uL 7.35 H Absolute Lymphocytes (1.2-3.4) 10^3/uL 2.36 Absolute Monocytes (0.1-0.8) 10^3/uL 0.90 H Absolute Eosinophils (0.0-0.7) 10^3/uL 0.30 Absolute Basophils (0.0-0.2) 10^3/uL 0.06 Sodium (136-145) mmol/L 138 Potassium (3.5-5.1) mmol/L 3.8 Chloride (98-107) mmol/L 104 Carbon Dioxide (21.0-32.0) mmol/L 23.5 Anion Gap (3-11) mmol/L 10.5 BUN (7-18) mg/dL 11 Creatinine (0.55-1.02) mg/dL 0.7 Est GFR (CKD-EPI 2020) (mL/min/1.73m2) 125.33 Glucose (74-106) mg/dL 93 Calcium (8.5-10.1) mg/dL 8.9 Total Bilirubin (0.2-1.0) mg/dL 0.3 AST (15-37) U/L 27 ALT (14-59) U/L 35 Alkaline Phosphatase (46-116) U/L 167 H Total Protein (6.4-8.2) g/dL 6.8 Albumin (3.4-5.0) g/dL 2.8 L Urine Color (Yellow) Yellow Urine Clarity (Clear) Clear Urine pH (5-8) 6.5 Ur Specific [place] (1.005-1.025) 1.025 Urine Protein (Negative) mg/dL Trace H Urine Ketones (Negative) mg/dL 15 H Urine Blood (Negative) Large H Urine Nitrite (Negative) Negative Urine Bilirubin (Negative) Negative Urine Urobilinogen (Up to 0.2) mg/dL 0.2 Ur Leukocyte Esterase (Negative) Small H Urine RBC (0-2) HPF 10-20 H Urine WBC (0-5) HPF 3-5 Ur Epithelial Cells (Negative) HPF Rare Urine Crystals (Negative) HPF Negative Urine Bacteria (Negative) HPF Rare Urine Casts (Negative) LPF Negative Urine Mucus (Negative) Trace Urine Other (Negative) Rare Transitional Ur Culture Indicated? Yes Urine Glucose (Negative) mg/dL Negative
[2023-04-21 22:28] VITALS: BP 141/94; PULSE 75; RESP 16; O2SAT 98
== END 2023-04-21 22:29 | disposition home or self-care (01) ==
PROVIDERS: Emergency Provider Student in an Organized Health Care Education/Training Program; PCP Family Medicine
DX: O90.89 Other complications of the puerperium, not elsewhere classified (principal)
CPT/HCPCS: 36415; 80053; 96372; 99284; 81003; 81015; 85025; 87086; J1885

== ENCOUNTER 2024-03-02 17:52 | Emergency (ER) | payer MEDICAID, SELFPAY ==
[2024-03-02 17:53] VITALS: BP 116/50; PULSE 89; RESP 14; TEMP 36.6; O2SAT 97
[2024-03-02 18:12] VITALS: RESP 18
[2024-03-02 18:52] LABS: COVID-19 PCR Negative (Negative); Influenza A PCR Negative (Negative); Influenza B PCR Negative (Negative); RSV PCR Negative (Negative); Source Nasopharynx
--- NOTE | 2024-03-02 19:16 | W.ED.GENAD ---
Discharge Plan Disposition Patient Disposition: Home Condition: Stable Discharge Details Clinical Impression: Upper respiratory infection, viral, Headache Primary Care Provider: Norma Leslie V ED Provider: Oxana Fowler Home Meds and New Rx's Prescriptions: New albuterol sulfate 90 mcg/actuation HFA aerosol inhaler 2 puff inhalation Q6H PRNQty: 6.7 0RF No Action meclizine 25 mg tablet 25 mg PO DAILY PRN ketoconazole 2 % shampoo 1 applic topical .twice weekly fluoxetine 10 mg capsule 10 mg PO DAILY albuterol sulfate [ProAir HFA] 90 mcg/actuation HFA aerosol inhaler 2 puff inhalation Q6H PRN norgestimate-ethinyl estradiol [Tri-Linyah] 0.18/0.215/0.25 mg-35 mcg (28) tablet 1 tab PO DAILY Patient Comments: TAKE ONE TABLET BY MOUTH EVERY DAY Discharge Instructions Instructions: Upper respiratory infection in adults - Discharge instructions Additional Instructions: You were seen in the emergency department today for evaluation of cough and headache. It is likely that you have a viral upper respiratory infection, though your COVID, influenza, and RSV testing was negative. It is safe for you to go home and continue to take Tylenol and ibuprofen for management of your headaches, as well as your albuterol inhaler as needed for your asthma. I recommend following up with your primary care provider in the next few days to discuss this visit and any symptoms that change, worsen, or persist. You can return to the emergency department if you have any concerning symptoms such as worsening shortness of breath, fever that does not respond to medications, change in mental status, or other concerns. Thank you for allowing us to be part of your care. HPI General Date/Time Provider Initiated Documentation: 03/02/24 18:02. HPI Narrative: MDM: In brief, this is a 24-year-old female patient with a past medical history significant for asthma (mild intermittent and well-controlled), allergic rhinitis, and a history of postconcussion headaches who is presenting for evaluation of 5 days of cough with worsening of her baseline headache. My differential includes but is not limited to viral URI, certainly considered pharyngitis, considered pneumonia and bronchitis though the patient is without fever, shortness of breath, or focal lung findings. The patient's headache is typical for her, and is not associated with any vision changes, neurodeficits or other concerning findings increase my concern for intracranial pathology such as mass effect, hemorrhage, vascular abnormalities, or stroke. The patient is afebrile, hemodynamically appropriate, and I have a low concern for serious bacterial infection such as sepsis or bacteremia. ED Course: Overall, the patient is well-appearing, hemodynamically appropriate and oxygenating well on room air. The patient's flu, COVID, and RSV testing was negative. I did provide her with a dose of Toradol and Tylenol for symptomatic management of her headache, and counseled her on klip-miq-wfgwebc medications for headache in the home environment. I am most concerned for viral URI, and do not see any indication at this time for further laboratory studies or imaging. The patient requested a refill of her albuterol inhaler, which I provided. At this time, the patient has had a full medical evaluation and is safe for discharge to home. They are hemodynamically stable, ambulatory, and tolerating PO. They are understanding of the follow-up plan and return precautions. They left our facility without incident. Oxana Fowler MD HPI: This is a 24-year-old female patient with a history of allergic rhinitis, asthma, ADHD and concussion with chronic headaches presenting for evaluation of 5 days of cough with worsening of her baseline headache. The patient reports that she noted a nonproductive cough with occasional mucus but no hemoptysis several days ago. She states that her cough has persisted and it makes her head feel worse. She has not noted any runny nose or sinus pressure but has had sore throat. She reports that she has a daycare aged child at home with otan-sutj-zio-mouth disease right now, has not noted any rash or lesions on herself. She has not had fever, has been eating and drinking normally and maintaining her hydration. Last dose of ibuprofen was this morning and was effective in managing her headache. She has not noted any numbness, weakness, or vision changes. She has not sustained trauma or had other recent injury or illness. She uses her albuterol inhaler occasionally, usually a few times a week and has not needed inhaled or oral steroids since her diagnosis. Exam: Gen: awake and alert, in no apparent distress. Appears well nourished. HEENT: PERRL, EOMs full and without nystagmus. External ears and nose normal, mucous membranes moist. Posterior pharynx without exudates, erythema, or lesions Neck: Supple, full range of motion, no observable masses or lymphadenopathy Lungs: No increased work of breathing, lung sounds clear and equal bilaterally without wheezes, rhonchi, or rales. CV: Heart with regular rate and rhythm, no murmurs auscultated. Strong and symmetrical radial pulses. Abdomen: Soft, nondistended, non-tender to palpation. MSK: No joint swelling, no redness. Full ROM without limitation, no external traumatic findings. Skin: No rashes or lesions to visualized skin. Normal color, warm, and dry. Neuro: Cranial nerves II-XII intact and symmetrical bilaterally. 5/5 strength in all muscle groups x4 extremities. No sensory deficits. Ambulates with steady gait. Psych: Appropriate for situation. Related Data Home Medications ?Medication ?Instructions ?Recorded ?Confirmed albuterol sulfate 90 mcg/actuation 2 puff inhalation Q6H PRN 01/30/21 03/02/24 aerosol inhaler (ProAir HFA) fluoxetine 10 mg capsule 10 mg PO DAILY 06/16/23 03/02/24 ketoconazole 2 % shampoo 1 applic topical .twice weekly 06/16/23 03/02/24 meclizine 25 mg tablet 25 mg PO DAILY PRN 06/16/23 03/02/24 albuterol sulfate 90 mcg/actuation 2 puff inhalation Q6H PRN #6.7 03/02/24 aerosol inhaler grams norgestimate-ethinyl estradiol 1 tab PO DAILY 03/02/24 03/02/24 0.18 mg/0.215mg/0.25mg-35 mcg(28)tablet (Tri-Linyah) Previous Rx's ?Medication ?Instructions ?Recorded albuterol sulfate 90 mcg/actuation 2 puff inhalation Q6H PRN #6.7 03/02/24 aerosol inhaler grams Allergies Allergy/AdvReac Type Severity Reaction Status Date / Time enviornmental Allergy Intermediate Itching Uncoded 03/02/24 17:56 General Stated Complaint: RespSymp ILANA: 3 Course Vital Signs Vital signs: Vital Signs Temperature 36.6 C 03/02/24 17:53 Pulse 89 03/02/24 17:53 Respiratory Rate 14 03/02/24 17:53 Blood Pressure 116/50 L 03/02/24 17:53 Pulse Oximetry 97 03/02/24 17:53 Temperature 36.6 C 03/02/24 17:53 Temperature Source Oral 03/02/24 17:53 Pulse 89 03/02/24 17:53 Respiratory Rate 18 03/02/24 18:12 Respiratory Effort Normal, Non-Labored 03/02/24 18:12 Respiratory Depth Normal 03/02/24 18:12 Respiratory Pattern Normal 03/02/24 18:12 Blood Pressure 116/50 L 03/02/24 17:53 Blood Pressure Position Sitting 03/02/24 17:53 Pulse Oximetry 97 03/02/24 17:53 Oxygen Delivery Method Room Air 03/02/24 17:53 Oxygen Flow Rate 0 03/02/24 17:53 Pain Level 4 03/02/24 17:53 Lab/Test Results Lab/Test Results: Laboratory Tests Range/Units 03/02/24 18:09 COVID-19 Source Nasopharynx SARS-CoV-2 (PCR) (Negative) Negative Influenza Type A (PCR) (Negative) Negative Influenza Type B (PCR) (Negative) Negative RSV (PCR) (Negative) Negative Medical Decision Making Quality:SDOH Health Related Social Needs: No Data to Display PFSH All Active Problems (Updated 03/02/24 @ 19:16 by Oxana Fowler MD) Headache (Acute) Upper respiratory infection, viral (Acute) Allergic rhinitis due to pollen (Chronic 11/30/17) ADHD (Chronic) Pt reports DX by PCP since childhood (1st grade). Dr. Lani Singleton - [facility]. New PCP @ [facility] most recent prescriber. Depression (Acute) Pt reports DX- Dr. Singleton at [facility] age 7/8 (?) Most recent prescriber through new PCP at [facility]. Medical History (Updated 03/02/24 @ 19:16 by Oxana Fowler MD) Asthma Hx of allergic rhinitis Irregular menstruation History of closed head injury PMS (premenstrual syndrome) Ankle pain, left Excessive sweating Atherosclerotic heart disease Vertigo Nursing difficulty Chest wall pain Gestational diabetes mellitus Exercise-induced asthma Surgical History No significant past surgical history Family History Maternal Grandmother Asthma Diabetes Maternal Aunt Depression Diabetes Maternal Grandfather Diabetes Maternal Aunt Heart disease Maternal Great Aunt Maternal Grandfather Hyperlipidemia Hypertension Stroke Other Breast cancer Social History Smoking/Tobacco Use Status: Never Smoking risk assessment performed?: Yes Alcohol Intake: never Drug use: Never Substance use type: does not use Housing: apartment Do you feel safe at home: Yes Do you feel safe in your relationship?: Yes Female Reproductive History Menstrual Age of Menarche: 10 control method: pills History History 2 Para 2 Hx # Term Pregnancies 2 Multiple births 0 Hx # Pregnancies 0 Ectopic pregnancies 0 AB induced 0 Hx Number of Living Children 2 AB spontaneous 0 Past Pregnancies Del. Date GA/Weeks # Preg Succ Route Wgt Sex Labor Lgth Anesthesia Location [facility] 08/05/21 39 No Yes vaginal 3118.448 g Male prodromal labor local [facility] [place]17[place]23 39 No Yes vaginal 3400 g Female LB Delivery Date: 08/05/21 Last Updated by: Hilary Hayes CNM Gestational Diabetes Aneudy Precipitous delivery reported Delivery Date: 04/17/23 Last Updated by: MD Marielos Alba
[2024-03-02] MEDS: Acetaminophen 500 MG TAB 1000 MG PO (19:32)
[2024-03-02] MEDS: Ketorolac 15 MG/ML VIAL IM (19:38)
[2024-03-02 19:48] VITALS: BP 121/87; PULSE 86; RESP 16; TEMP 36.4; O2SAT 98
[2024-03-02 19:52] VITALS: BP 121/87; PULSE 86; RESP 17; TEMP 36.4; O2SAT 98
== END 2024-03-02 19:15 | disposition home or self-care (01) ==
PROVIDERS: Physician Assistant; Emergency Provider Emergency Medicine; PCP Family Medicine
DX: J06.9 Acute upper respiratory infection, unspecified (principal); J45.20 Mild intermittent asthma, uncomplicated; R05.1 Acute cough; R51.9 Headache, unspecified
CPT/HCPCS: 87637; 96372; 99284; 99283; J1885

== ENCOUNTER 2024-03-03 18:43 | Emergency (ER) | payer MEDICAID, SELFPAY ==
[2024-03-03 18:50] VITALS: BP 125/89; PULSE 88; RESP 14; TEMP 36.8; O2SAT 98
--- NOTE | 2024-03-03 19:15 | DI.RAD_ITS ---
Exam(s) XR CHEST 2V PA LATERAL EXAM: XR CHEST 2V PA LATERAL CLINICAL HISTORY: cough, shortness of breath TECHNIQUE: 2D digital imaging was performed of the chest. Two images were obtained. PA and lateral views were obtained. COMPARISON: No exams were available for comparison FINDINGS: MEDIASTINUM: Normal. HEART: Normal. PULMONARY VASCULATURE: Normal. LUNGS: Clear. PLEURAL SPACE: No pleural effusion or pneumothorax. BONE:Within normal limits for the patient's age. OTHER FINDINGS:Normal. IMPRESSION: No acute pulmonary findings. DATA REPOSITORY: RADIATION DOSE DELIVERED:
[2024-03-03 19:33] LABS: Bilirubin Negative (Negative); Blood Trace-intact (Negative); Clarity Clear (Clear); Glucose Negative (Negative); Ketones Negative (Negative); Leukocyte Esterase Negative (Negative); Nitrite Negative (Negative); Urobilinogen 0.2 mg/dL (Up to 0.2); pH 5.5 (5-8)
[2024-03-03] MEDS: Acetaminophen 325 MG TAB 650 MG PO (19:37)
[2024-03-03 19:41] LABS: Bacteria Rare HPF (Negative); C & S Indicated? No; Casts Negative LPF (Negative); Crystals Negative HPF (Negative); Mucus Negative (Negative); WBC Negative HPF (0-5)
[2024-03-03 19:42] LABS: Epithelial Cells Rare HPF (Negative)
[2024-03-03] MEDS: Dexamethasone 10 MG/ML VIAL PO (19:53)
--- NOTE | 2024-03-03 20:29 | DI.VRAD_ITS ---
PROCEDURE INFORMATION: Exam: XR Chest Exam date and time: 03/03/2024 7:40 PM Age: 24 years old Clinical indication: Cough and shortness of breath TECHNIQUE: Imaging protocol: Radiologic exam of the chest. Views: 2 views. COMPARISON: No relevant prior studies available. FINDINGS: Lungs: Unremarkable. No consolidation. Pleural spaces: Unremarkable. No pleural effusion. No pneumothorax. Heart/Mediastinum: Unremarkable. No cardiomegaly. Bones/joints: Unremarkable. IMPRESSION: No acute findings. Dictated and Authenticated by: Dean Starks MD. Ordering:TANJA Mera MD
--- NOTE | 2024-03-05 08:06 | ED.GENADUL_ITS ---
Discharge Plan Disposition Patient Disposition: Home Condition: Stable Discharge Details Clinical Impression: Bronchitis Primary Care Provider: Norma Leslie V ED Provider: Samaria Santana Home Meds and New Rx's Prescriptions: Continued meclizine 25 mg tablet 25 mg PO DAILY PRN ketoconazole 2 % shampoo 1 applic topical .twice weekly fluoxetine 10 mg capsule 10 mg PO DAILY albuterol sulfate [ProAir HFA] 90 mcg/actuation HFA aerosol inhaler 2 puff inhalation Q6H PRN norgestimate-ethinyl estradiol [Tri-Linyah] 0.18/0.215/0.25 mg-35 mcg (28) tablet 1 tab PO DAILY Patient Comments: TAKE ONE TABLET BY MOUTH EVERY DAY albuterol sulfate 90 mcg/actuation HFA aerosol inhaler 2 puff inhalation Q6H PRNQty: 6.7 0RF Discharge Instructions Instructions: Acute bronchitis Additional Instructions: Use your inhaler, 2 puffs every 4-6 hours You received a dose of Decadron this will help with your symptoms for the next 72 hours Increase fluids, humidifier in your room Please return earlier should you have new or worsening complaints including fever, shortness of breath, or persistent symptoms, recheck next week with your primary care physician Referrals: Norma Leslie MD [Primary Care Provider] - 2 days Discharge Data Discharge Date/Time-TO BE ENTERED AT DEPARTURE: 03/03/24 19:54 HPI General Date/Time Provider Initiated Documentation: 03/03/24 18:52 . HPI Narrative: This 24-year-old female presents with report of viral upper respiratory congestion with an episode of reported hemoptysis.. She received a dose of Toradol yesterday for when she presented with her upper respiratory symptoms and headache. She is concerned that the Toradol may have interacted with her allergy medication. Patient denies any fever or chills. She states she has had a small amount. Patient denies any shortness of breath. Related Data Home Medications ?Medication ?Instructions ?Recorded ?Confirmed albuterol sulfate 90 mcg/actuation 2 puff inhalation Q6H PRN 01/30/21 03/03/24 aerosol inhaler (ProAir HFA) fluoxetine 10 mg capsule 10 mg PO DAILY 06/16/23 03/03/24 ketoconazole 2 % shampoo 1 applic topical .twice weekly 06/16/23 03/03/24 meclizine 25 mg tablet 25 mg PO DAILY PRN 06/16/23 03/03/24 albuterol sulfate 90 mcg/actuation 2 puff inhalation Q6H PRN #6.7 03/02/24 03/03/24 aerosol inhaler grams norgestimate-ethinyl estradiol 1 tab PO DAILY 03/02/24 03/03/24 0.18 mg/0.215mg/0.25mg-35 mcg(28)tablet (Tri-Linyah) Previous Rx's ?Medication ?Instructions ?Recorded albuterol sulfate 90 mcg/actuation 2 puff inhalation Q6H PRN #6.7 03/02/24 aerosol inhaler grams Allergies Allergy/AdvReac Type Severity Reaction Status Date / Time enviornmental Allergy Intermediate Itching Uncoded 03/03/24 18:56 General Stated Complaint: RespSymp ILANA: 4 Exam Narrative Exam Narrative: 24-year-old female alert and oriented, no acute distress, no respiratory dis tress, lungs clear to auscultation, cardiac rate rhythm regular no rashes or lesions Course Vital Signs Vital signs: Vital Signs Temperature 36.8 C 03/03/24 18:50 Pulse 88 03/03/24 18:50 Respiratory Rate 14 03/03/24 18:50 Blood Pressure 125/89 03/03/24 18:50 Pulse Oximetry 98 03/03/24 18:50 Temperature 36.8 C 03/03/24 18:50 Temperature Source Skin 03/03/24 18:50 Pulse 88 03/03/24 18:50 Respiratory Rate 14 03/03/24 18:50 Respiratory Effort Normal, Non-Labored 03/03/24 19:32 Respiratory Depth Normal 03/03/24 19:32 Blood Pressure 125/89 03/03/24 18:50 Blood Pressure Position Sitting 03/03/24 18:50 Pulse Oximetry 98 03/03/24 18:50 Oxygen Delivery Method Room Air 03/03/24 18:50 Oxygen Flow Rate 0 03/03/24 18:50 Pain Level 4 03/03/24 18:50 Comment back of head. took ibuprofen at noon 03/03/24 18:50 Lab/Test Results Lab/Test Results: Laboratory Tests Range/Units 03/03/24 19:25 Urine Color (Yellow) Yellow Urine Clarity (Clear) Clear Urine pH (5-8) 5.5 Ur Specific [place] (1.005-1.025) 1.020 Urine Protein (Neg-Trace) mg/dL Negative Urine Ketones (Negative) mg/dL Negative Urine Blood (Negative) Trace-intact H Urine Nitrite (Negative) Negative Urine Bilirubin (Negative) Negative Urine Urobilinogen (Up to 0.2) mg/dL 0.2 Ur Leukocyte Esterase (Negative) Negative Urine RBC (0-2) HPF 5-10 H Urine WBC (0-5) HPF Negative Ur Epithelial Cells (Negative) HPF Rare Urine Crystals (Negative) HPF Negative Urine Bacteria (Negative) HPF Rare Urine Casts (Negative) LPF Negative Urine Mucus (Negative) Negative Ur Culture Indicated? No Urine Glucose (Negative) mg/dL Negative POC- Test(urine) Negative Medical Decision Making This 24-year-old female who presents in no acute distress has a normal-appearing chest x-ray without any evidence of bronchitis or infiltrate per radiology interpretation my review. I will give patient several days of prednisone and encouraged her to continue using her albuterol inhaler. Return precautions reviewed and patient expressed understanding. Clinically low suspicion for pulmonary embolism based on my clinical exam, no hypoxia, tachypnea, or tachycardia. No calf swelling or tenderness recheck in 48 hours recommended Quality:SDOH Health Related Social Needs: No Data to Display PFSH All Active Problems (Updated 03/03/24 @ 19:47 by RODRIGO Das) Bronchitis (Acute) Headache (Acute) Upper respiratory infection, viral (Acute) Allergic rhinitis due to pollen (Chronic 11/30/17) ADHD (Chronic) Pt reports DX by PCP since childhood (1st grade). Dr. Lani Singleton - [facility]. New PCP @ [facility] most recent prescriber. Depression (Acute) Pt reports DX- Dr. Singleton at [facility] age 7/8 (?) Most recent prescriber through new PCP at [facility]. Medical History (Updated 03/03/24 @ 19:47 by RODRIGO Das) Asthma Hx of allergic rhinitis Irregular menstruation History of closed head injury PMS (premenstrual syndrome) Ankle pain, left Excessive sweating Atherosclerotic heart disease Vertigo Nursing difficulty Chest wall pain Gestational diabetes mellitus Exercise-induced asthma Surgical History No significant past surgical history Family History Maternal Grandmother Asthma Diabetes Maternal Aunt Depression Diabetes Maternal Grandfather Diabetes Maternal Aunt Heart disease Maternal Great Aunt Maternal Grandfather Hyperlipidemia Hypertension Stroke Other Breast cancer Social History Smoking/Tobacco Use Status: Never Smoking risk assessment performed?: Yes Alcohol Intake: never Drug use: Never Substance use type: does not use Housing: apartment Do you feel safe at home: Yes Do you feel safe in your relationship?: Yes Female Reproductive History Menstrual Age of Menarche: 10 control method: pills History History 2 Para 2 Hx # Term Pregnancies 2 Multiple births 0 Hx # Pregnancies 0 Ectopic pregnancies 0 AB induced 0 Hx Number of Living Children 2 AB spontaneous 0 Past Pregnancies Del. Date GA/Weeks # Preg Succ Route Wgt Sex Labor Lgth Anesth esia Location [facility] 08/05/21 39 No Yes vaginal 3118.448 g Male prodromal labor [place] [facility] [place]17[place]23 39 No Yes vaginal 3400 g Female LB Delivery Date: 08/05/21 Last Updated by: Hilary Hayes CNM Gestational Diabetes Aneudy Precipitous delivery reported Delivery Date: 04/17/23 Last Updated by: MD Marielos Alba
== END 2024-03-03 19:54 | disposition home or self-care (01) ==
PROVIDERS: Emergency Medicine; Emergency Provider Physician Assistant; PCP Family Medicine
DX: J20.9 Acute bronchitis, unspecified (principal)
CPT/HCPCS: 81025; 99283; 71046; 81003; 81015; J1100

== ENCOUNTER 2024-04-28 14:44 | Emergency (ER) | payer MEDICAID, SELFPAY ==
[2024-04-28 14:54] VITALS: BP 125/84; PULSE 88; RESP 12; TEMP 36.6; O2SAT 96
--- NOTE | 2024-04-28 15:00 | DI.RAD_ITS ---
Exam(s) XR ANKLE RT COMPLETE EXAM: XR ANKLE RT COMPLETE CLINICAL HISTORY: twisting injury. TECHNIQUE: 2D digital imaging was performed. Three views. COMPARISON: No exams were available for comparison FINDINGS: BONES: No acute fracture is present. No bony destructive lesion is seen. JOINTS: The ankle mortise is normally aligned. SOFT TISSUE: Normal. IMPRESSION: Unremarkable radiographs of the right ankle. DATA REPOSITORY: RADIATION DOSE DELIVERED:
--- NOTE | 2024-04-28 15:36 | W.ED.GENAD ---
Discharge Plan Disposition Patient Disposition: Home Condition: Stable Discharge Details Clinical Impression: Ankle sprain Primary Care Provider: Norma Leslie V ED Provider: Oxana Fowler Home Meds and New Rx's Prescriptions: No Action meclizine 25 mg tablet 25 mg PO DAILY PRN ketoconazole 2 % shampoo 1 applic topical .twice weekly fluoxetine 10 mg capsule 10 mg PO DAILY albuterol sulfate [ProAir HFA] 90 mcg/actuation HFA aerosol inhaler 2 puff inhalation Q6H PRN norgestimate-ethinyl estradiol [Tri-Linyah] 0.18/0.215/0.25 mg-35 mcg (28) tablet 1 tab PO DAILY Patient Comments: TAKE ONE TABLET BY MOUTH EVERY DAY albuterol sulfate 90 mcg/actuation HFA aerosol inhaler 2 puff inhalation Q6H PRNQty: 6.7 0RF Discharge Instructions Instructions: Ankle Sprain ED Additional Instructions: You were seen in the emergency department today for evaluation of an ankle injury and were found to have a sprain. In our department you had a full physical examination performed, had an x-ray that showed no fractures, and were given an ankle brace. It is safe for you to go home and use Tylenol and ibuprofen to manage any ongoing symptoms, ice and elevation for swelling, and follow-up with your provider at your scheduled visit in the next few days. Thank you for allowing us to be part of your care. HPI General Mode of arrival: ambulatory. Date/Time Provider Initiated Documentation: 04/28/24 14:52. Limitations to Documentation: no limitations. Information obtained by: patient and old records reviewed. HPI Narrative: HPI: This is a 24-year-old female patient presenting for evaluation of right ankle injury. The patient reports that she was walking down her stairs and tripped, rolling her ankle. She has been able to ambulate on the foot but it does hurt when she does so. States that she lost her balance and fell again, with worsening pain of that ankle today. Initial injury yesterday. Patient reports that she did not injure any other part of her body during this event, did not lose consciousness, and her fall was not preceded by any dizziness, syncope, or chest pain. She has not tried any medications in the outpatient environment for pain, states that she has otherwise been in her normal state of health. Exam: Gen: Awake and alert, in no apparent distress HEENT: Non-icteric sclera Neck: Supple Lungs: No apparent respiratory distress, normal respiratory effort. CV: Appears well perfused Abdomen: Non-distended MSK: Moves 4 extremities without apparent limitation in ROM. The patient has no tenderness to palpation of the affected right knee or proximal fibula. No overlying skin changes. The patient has no significant pain with stressing of the syndesmosis. She has tenderness over the medial malleolus, minimal swelling and no ecchymosis. She has no tenderness over the calcaneal tendon, midfoot, off of the fifth metatarsal. Full range of motion of her toes, no sensory deficits, strong pedal pulses Skin: Visualized skin without rashes, cyanosis. Neuro: Normal Gait, no obvious focal deficits or facial asymmetry. Speaks in full, clear sentences. Psych: Appropriate for situation. MDM: This is a 24-year-old female patient presenting for evaluation of an isolated ankle injury. Differential includes but is not limited to fracture, dislocation, sprain, no evidence for neurovascular derangement on my physical examination. This is an isolated injury and the patient does not have other traumatic injuries that require workup today. This was a mechanical fall and the patient does not have any medical complaints that would require workup and management at this time. We will obtain an x-ray of the affected right ankle, patient reports that she we will wait for medications, but did use an ice pack for swelling reduction. ED Course: I independently interpreted the patient's x-ray imaging which shows no evidence of fracture, dislocation. The patient was placed in a ankle lace up's support splint, was able to ambulate and bear weight, and understands multimodal pain management including Tylenol, ibuprofen, ice and elevation. At this time, the patient has had a full medical evaluation and is safe for discharge to home. They are hemodynamically stable, ambulatory, and tolerating PO. They are understanding of the follow-up plan and return precautions. They left our facility without incident. Oxana Fowler MD Related Data Home Medications ?Medication ?Instructions ?Recorded ?Confirmed albuterol sulfate 90 mcg/actuation 2 puff inhalation Q6H PRN 01/30/21 04/28/24 aerosol inhaler (ProAir HFA) fluoxetine 10 mg capsule 10 mg PO DAILY 06/16/23 04/28/24 ketoconazole 2 % shampoo 1 applic topical .twice weekly 06/16/23 04/28/24 meclizine 25 mg tablet 25 mg PO DAILY PRN 06/16/23 04/28/24 albuterol sulfate 90 mcg/actuation 2 puff inhalation Q6H PRN #6.7 03/02/24 04/28/24 aerosol inhaler grams norgestimate-ethinyl estradiol 1 tab PO DAILY 03/02/24 04/28/24 0.18 mg/0.215mg/0.25mg-35 mcg(28)tablet (Tri-Linyah) Previous Rx's ?Medication ?Instructions ?Recorded albuterol sulfate 90 mcg/actuation 2 puff inhalation Q6H PRN #6.7 03/02/24 aerosol inhaler grams Allergies Allergy/AdvReac Type Severity Reaction Status Date / Time enviornmental Allergy Intermediate Itching Uncoded 04/28/24 14:57 General Stated Complaint: Orthopedic ILANA: 4 Course Vital Signs Vital signs: Vital Signs Temperature 36.6 C 04/28/24 14:54 Pulse 88 04/28/24 14:54 Respiratory Rate 12 04/28/24 14:54 Blood Pressure 125/84 04/28/24 14:54 Pulse Oximetry 96 04/28/24 14:54 Temperature 36.6 C 04/28/24 14:54 Pulse 88 04/28/24 14:54 Respiratory Rate 12 04/28/24 14:54 Blood Pressure 125/84 04/28/24 14:54 Pulse Oximetry 96 04/28/24 14:54 Oxygen Delivery Method Room Air 04/28/24 14:54 Oxygen Flow Rate 0 04/28/24 14:54 Pain Level 6 04/28/24 14:59 Medical Decision Making Quality:SDOH Health Related Social Needs: No Data to Display PFSH All Active Problems (Updated 04/28/24 @ 15:56 by Oxana Fowler MD) Ankle sprain (Acute) Allergic rhinitis due to pollen (Chronic 11/30/17) ADHD (Chronic) Pt reports DX by PCP since childhood (1st grade). Dr. Lani Singleton - [facility]. New PCP @ [facility] most recent prescriber. Depression (Acute) Pt reports DX- Dr. Singleton at [facility] age 7/8 (?) Most recent prescriber through new PCP at [facility]. Medical History (Updated 04/28/24 @ 15:56 by Oxana Fowler MD) Asthma Hx of allergic rhinitis Irregular menstruation History of closed head injury PMS (premenstrual syndrome) Ankle pain, left Excessive sweating Atherosclerotic heart disease Vertigo Nursing difficulty Chest wall pain Gestational diabetes mellitus Exercise-induced asthma Surgical History No significant past surgical history Family History Maternal Grandmother Asthma Diabetes Maternal Aunt Depression Diabetes Maternal Grandfather Diabetes Maternal Aunt Heart disease Maternal Great Aunt Maternal Grandfather Hyperlipidemia Hypertension Stroke Other Breast cancer Social History Smoking/Tobacco Use Status: Never Smoking risk assessment performed?: Yes Alcohol Intake: never Drug use: Never Substance use type: does not use Housing: apartment Do you feel safe at home: Yes Do you feel safe in your relationship?: Yes Female Reproductive History Menstrual Age of Menarche: 10 control method: pills History History 2 Para 2 Hx # Term Pregnancies 2 Multiple births 0 Hx # Pregnancies 0 Ectopic pregnancies 0 AB induced 0 Hx Number of Living Children 2 AB spontaneous 0 Past Pregnancies Del. Date GA/Weeks # Preg Succ Route Wgt Sex Labor Lgth Anesthesia Location [facility] 08/05/21 39 No Yes vaginal 3118.448 g Male prodromal labor [place] [facility] [place]/17[place]23 39 No Yes vaginal 3400 g Female LB Delivery Date: 08/05/21 Last Updated by: Hilary Hayes CNM Gestational Diabetes Aneudy Precipitous delivery reported Delivery Date: 04/17/23 Last Updated by: MD Marielos Alba
== END 2024-04-28 17:09 | disposition home or self-care (01) ==
PROVIDERS: Emergency Provider Emergency Medicine; PCP Family Medicine
DX: S93.401A Sprain of unspecified ligament of right ankle, initial encounter (principal); W01.0XXA Fall on same level from slipping, tripping and stumbling without subsequent striking against object, initial encounter; Y93.01 Activity, walking, marching and hiking; Y92.89 Other specified places as the place of occurrence of the external cause
CPT/HCPCS: 99283; 73610

== ENCOUNTER 2024-05-27 17:41 | Outpatient (REF) | payer MEDICAID, SELFPAY ==
[2024-05-27 20:21] LABS: TSH (W/Ref FT4) 2.78 uIU/mL (0.36-3.74)
[2024-05-27 20:31] LABS: Hemoglobin A1C 5.3 % (<5.7)
== END 2024-05-27 17:42 | disposition home or self-care (01) ==
LOC: NCHCN 17:41
PROVIDERS: PCP Family Medicine; Visit Provider Family Medicine
DX: G93.2 Benign intracranial hypertension (principal)
CPT/HCPCS: 83036; 84443

== ENCOUNTER 2024-09-19 14:09 | Emergency (ER) | payer MEDICAID, SELFPAY ==
[2024-09-19 14:13] VITALS: BP 151/83; PULSE 86; RESP 15; TEMP 36.8; O2SAT 97
--- NOTE | 2024-09-19 14:23 | W.ED.GENAD ---
Discharge Plan Disposition Patient Disposition: Home Condition: Good Discharge Details Clinical Impression: Avulsion of skin of right hand Primary Care Provider: Norma Leslie V ED Provider: Curtis Sweeney Meds and New Rx's Prescriptions: Continued meclizine 25 mg tablet 25 mg PO DAILY PRN ketoconazole 2 % shampoo 1 applic topical .twice weekly fluoxetine 10 mg capsule 10 mg PO DAILY albuterol sulfate [ProAir HFA] 90 mcg/actuation HFA aerosol inhaler 2 puff inhalation Q6H PRN norgestimate-ethinyl estradiol [Tri-Linyah] 0.18/0.215/0.25 mg-35 mcg (28) tablet 1 tab PO DAILY Patient Comments: TAKE ONE TABLET BY MOUTH EVERY DAY albuterol sulfate 90 mcg/actuation HFA aerosol inhaler 2 puff inhalation Q6H PRNQty: 6.7 0RF Discharge Instructions Instructions: Taking care of cuts, scrapes, and puncture wounds Discharge Data Discharge Physician: Curtis Sweeney [facility] General Date/Time Provider Initiated Documentation: 09/19/24 14:18. HPI Narrative: Patient presents emergency department with an avulsion injury to the thenar aspect of her right hand which she did with a vegetable slicer she sliced the superficial piece of skin with mild oozing. Reports she is up-to-date with a tetanus shot Related Data Home Medications ?Medication ?Instructions ?Recorded ?Confirmed albuterol sulfate 90 mcg/actuation 2 puff inhalation Q6H PRN 01/30/21 09/19/24 aerosol inhaler (ProAir HFA) fluoxetine 10 mg capsule 10 mg PO DAILY 06/16/23 09/19/24 ketoconazole 2 % shampoo 1 applic topical .twice weekly 06/16/23 09/19/24 meclizine 25 mg tablet 25 mg PO DAILY PRN 06/16/23 09/19/24 albuterol sulfate 90 mcg/actuation 2 puff inhalation Q6H PRN #6.7 03/02/24 09/19/24 aerosol inhaler grams norgestimate-ethinyl estradiol 1 tab PO DAILY 03/02/24 09/19/24 0.18 mg/0.215mg/0.25mg-35 mcg(28)tablet (Tri-Linyah) Previous Rx's ?Medication ?Instructions ?Recorded albuterol sulfate 90 mcg/actuation 2 puff inhalation Q6H PRN #6.7 03/02/24 aerosol inhaler grams Allergies Allergy/AdvReac Type Severity Reaction Status Date / Time enviornmental Allergy Intermediate Itching Uncoded 09/19/24 14:17 General Stated Complaint: Laceration ILANA: 4 Review of Systems Narrative: Review of Systems: Constitutional: No fevers, chills, sweats Eye: No recent visual problems ENT: No ear pain, nasal congestion, sore throat Respiratory: No shortness of breath, cough Cardiovascular: No Chest pain, palpitations, syncope Gastrointestinal: No nausea, vomiting, diarrhea Genitourinary: No hematuria Jr/Lymph: Negative for bruising tendency, swollen lymph glands Endocrine: Negative for excessive thirst, excessive hunger Musculoskeletal: No back pain, neck pain, joint pain, muscle pain, decreased range of motion Integumentary: No rash, pruritus, abrasions Neurologic: Alert & oriented X 4 Psychiatric: No anxiety, depression Exam Narrative Exam Narrative: Exam; vitals signs as reported above normal Constitutional; In no acute distress, afebrile General: cooperative, healthy appearing, comfortable and no acute distress HEENT: Head: normal to inspection, no palpable skull fracture and normocephalic atraumatic Eyes: : appearance normal, both eyes and all related structures EOM intact bilaterally Pupils: PERRL : conjunctiva normal Direct ophthalmoscopy: normal light reflex, normal conjunctiva, normal visual acuity Ears: Normal TM, normal external canal Nose: normal no rhinorreha Neck no JVD, supple non tender Neck: normal visual inspection, full ROM and no lymphadenopathy Chest: normal inspection of the chest Respiratory : normal respiratory effort and able to speak in complete sentences no wheezing no rales Cardio Rate: regular rate, rhythm: regular rhythm normal heart sounds S1 and S2 no murmurs, gallops, or rubs GI : normal to inspection, normal bowel sounds, soft, non tender, non distended, no organomegaly Back/Spine/ no CVA tenderness Thoracic/Lumbar Spine: no tenderness or deformities Skin no rashes or 1.5 cm laceration to the lateral aspect above the hypothenar eminence of her right hand which is an avulsion with no skin to suture Neuro: patient alert oriented x 4 and no meningeal signs, Cranial Nerves: CN's II-XI intact bilaterally, Cognition: normal cognition, Speech: speech normal, Gait: normal gait, Depp tendon reflexes normal 2+ muscle strength 5/5 bilaterally Extremities, no edema, full range of motion, normal strength Course Vital Signs Vital signs: Vital Signs Temperature 36.8 C 09/19/24 14:13 Pulse 86 09/19/24 14:13 Respiratory Rate 15 09/19/24 14:13 Blood Pressure 151/83 H 09/19/24 14:13 Pulse Oximetry 97 09/19/24 14:13 Temperature 36.8 C 09/19/24 14:13 Pulse 86 09/19/24 14:13 Respiratory Rate 15 09/19/24 14:13 Blood Pressure 151/83 H 09/19/24 14:13 Blood Pressure Position Sitting 09/19/24 14:13 Pulse Oximetry 97 09/19/24 14:13 Oxygen Delivery Method Room Air 09/19/24 14:13 Oxygen Flow Rate 0 09/19/24 14:13 Medical Decision Making MDM: Summary: Patient presents emergency department with an avulsion of the hypothenar eminence of the palmar aspect of the right hand nothing to suture clean will be sent home with dressings bacitracin and asked to close by second intention. Data Review Analysis All the data on this patient was reviewed by me including laboratory and imaging studies as well as bedside studies performed by me Independent review of Studies Imaging Lab: Risk Stratification: Patient will be discharged home she is up-to-date with tetanus with a clean avulsion wound very superficial to the right hand Differential Diagnosis: 1. Avulsion injury 2. Skin laceration 3. Palmar ulcer 4. 5. Consultants: Shared disposition: Patient understands the disposition will do accordingly Impression: Medical Records Medical records reviewed: Yes I reviewed the patient's medical records. Quality:SDOH Health Related Social Needs: No Data to Display PFSH All Active Problems (Updated 09/19/24 @ 14:45 by Curtis Sweeney MD) Avulsion of skin of right hand (Acute) Allergic rhinitis due to pollen (Chronic 11/30/17) ADHD (Chronic) Pt reports DX by PCP since childhood (1st grade). Dr. Lani Singleton - [facility]. New PCP @ [facility] most recent prescriber. Depression (Acute) Pt reports DX- Dr. Singleton at [facility] age 7/8 (?) Most recent prescriber through new PCP at [facility]. Medical History Asthma Hx of allergic rhinitis Irregular menstruation History of closed head injury PMS (premenstrual syndrome) Ankle pain, left Excessive sweating Atherosclerotic heart disease Vertigo Nursing difficulty Chest wall pain Gestational diabetes mellitus Exercise-induced asthma Surgical History No significant past surgical history Family History Maternal Grandmother Asthma Diabetes Maternal Aunt Depression Diabetes Maternal Grandfather Diabetes Maternal Aunt Heart disease Maternal Great Aunt Maternal Grandfather Hyperlipidemia Hypertension Stroke Other Breast cancer Social History Smoking/Tobacco Use Status: Never Smoking risk assessment performed?: Yes Alcohol Intake: never Drug use: Never Substance use type: does not use Housing: apartment Do you feel safe at home: Yes Do you feel safe in your relationship?: Yes Female Reproductive History Menstrual Age of Menarche: 10 control method: pills History History 2 Para 2 Hx # Term Pregnancies 2 Multiple births 0 Hx # Pregnancies 0 Ectopic pregnancies 0 AB induced 0 Hx Number of Living Children 2 AB spontaneous 0 Past Pregnancies Del. Date GA/Weeks # Preg Succ Route Wgt Sex Labor Lgth Anesthesia Location [facility] 08/05/21 39 No Yes vaginal 3118.448 g Male prodromal labor local [facility] [place] 04/17/23 39 No Yes vaginal 3400 g Female LB Delivery Date: 08/05/21 Last Updated by: Hilary Hayes CNM Gestational Diabetes Aneudy Precipitous delivery reported Delivery Date: 04/17/23 Last Updated by: MD Marielos Alba
== END 2024-09-19 14:51 | disposition home or self-care (01) ==
LOC: ER 14:52
PROVIDERS: Emergency Provider Emergency Medicine Emergency Medical Services; PCP Family Medicine
DX: S61.401A Unspecified open wound of right hand, initial encounter (principal); W27.4XXA Contact with kitchen utensil, initial encounter
CPT/HCPCS: 99283; J2003

== ENCOUNTER 2025-06-15 19:50 | Emergency (ER) | payer MEDICAID, SELFPAY ==
[2025-06-15 19:52] VITALS: BP 132/83; PULSE 87; RESP 16; O2SAT 96
--- NOTE | 2025-06-15 20:01 | DI.RAD_ITS ---
Exam(s) XR ANKLE RT COMPLETE EXAM: XR ANKLE RT COMPLETE CLINICAL HISTORY: Injury. TECHNIQUE: 2D digital imaging was performed of the right ankle. Three images were obtained. AP, lateral and oblique views were obtained. COMPARISON: CR XR ANKLE RT COMPLETE from 04/28/2024 FINDINGS: BONES: No acute fracture is present. No bony destructive lesion is seen. JOINTS: The ankle mortise is normally aligned. SOFT TISSUE: Normal. IMPRESSION: 1. Unremarkable radiographs of the right ankle. 2. The preliminary [facility] report was reviewed. DATA REPOSITORY: RADIATION DOSE DELIVERED:
--- NOTE | 2025-06-15 20:01 | DI.RAD_ITS ---
Exam(s) XR KNEE RT 3V AP,LAT,GABRIELLE EXAM: XR KNEE RT 3V AP,LAT,GABRIELLE CLINICAL HISTORY: Fall. TECHNIQUE: 2D digital imaging was performed of the right knee. Three views obtained. AP, lateral and PA tunnel views were obtained. COMPARISON: No exams were available for comparison FINDINGS: BONES: No acute fracture is present. No bony destructive lesion is seen. JOINTS: The knee is normally aligned. No joint effusion is seen. SOFT TISSUE: Normal. IMPRESSION: 1. Unremarkable radiographs of the right knee. 2. The preliminary [facility] report was reviewed. DATA REPOSITORY: RADIATION DOSE DELIVERED:
--- NOTE | 2025-06-15 20:01 | W.ED.GENAD ---
Discharge Plan Disposition Patient Disposition: Home Condition: Stable Discharge Details Clinical Impression: Right ankle sprain Primary Care Provider: Norma Leslie V ED Provider: Ese Rios Home Meds and New Rx's Prescriptions: No Action meclizine 25 mg tablet 25 mg PO DAILY PRN ketoconazole 2 % shampoo 1 applic topical .twice weekly fluoxetine 10 mg capsule 10 mg PO DAILY albuterol sulfate [ProAir HFA] 90 mcg/actuation HFA aerosol inhaler 2 puff inhalation Q6H PRN norgestimate-ethinyl estradiol [Tri-Linyah] 0.18/0.215/0.25 mg-35 mcg (28) tablet 1 tab PO DAILY Patient Comments: TAKE ONE TABLET BY MOUTH EVERY DAY albuterol sulfate 90 mcg/actuation HFA aerosol inhaler 2 puff inhalation Q6H PRNQty: 6.7 0RF Discharge Instructions Instructions: Ankle Sprain ED Additional Instructions: No evidence for fracture or broken bones on X-rays, I do suspect sprains. Please wear the ankle splint as needed for comfort. Apply ice rest and elevate the leg. Please take Tylenol or Ibuprofen with food every 4-6 hours as needed for pain and swelling. Stand Alone Forms: Portal Information Referrals: Norma Leslie MD [Primary Care Provider, Medicine] - 2 weeks HPI General Mode of arrival: ambulatory. Date/Time Provider Initiated Documentation: 06/15/25 19:56. Limitations to Documentation: no limitations. Information obtained by: patient, RN notes reviewed and old records reviewed. 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 Has been able to bear weight with some difficulty. Has medial and anterior knee pain with palpation. No obvious deformity, distal CMS is intact. No other complaints or injuries. Related Data Home Medications ?Medication ?Instructions ?Recorded ?Confirmed albuterol sulfate 90 mcg/actuation 2 puff inhalation Q6H PRN 01/30/21 06/15/25 aerosol inhaler (ProAir HFA) fluoxetine 10 mg capsule 10 mg PO DAILY 06/16/23 06/15/25 ketoconazole 2 % shampoo 1 applic topical .twice weekly 06/16/23 06/15/25 meclizine 25 mg tablet 25 mg PO DAILY PRN 06/16/23 06/15/25 albuterol sulfate 90 mcg/actuation 2 puff inhalation Q6H PRN #6.7 03/02/24 06/15/25 aerosol inhaler grams norgestimate-ethinyl estradiol 1 tab PO DAILY 03/02/24 06/15/25 0.18mg/0.215mg/0.25mg-0.035mg(28)tablet (Tri-Linyah) Previous Rx's ?Medication ?Instructions ?Recorded albuterol sulfate 90 mcg/actuation 2 puff inhalation Q6H PRN #6.7 03/02/24 aerosol inhaler grams Allergies Allergy/AdvReac Type Severity Reaction Status Date / Time enviornmental Allergy Intermediate Itching Uncoded 06/15/25 19:54 General Stated Complaint: Orthopedic ILANA: 4 Review of Systems Musculoskeletal Musculoskeletal: Reports as per HPI and Reports arthralgias Exam Extrem General: normal to inspection Right lower extremity: knee Details: tenderness and ankle Details: tenderness Course Vital Signs Vital signs: Vital Signs Pulse 87 06/15/25 19:52 Respiratory Rate 16 06/15/25 19:52 Blood Pressure 132/83 06/15/25 19:52 Pulse Oximetry 96 06/15/25 19:52 Pulse 87 06/15/25 19:52 Respiratory Rate 16 06/15/25 19:52 Blood Pressure 132/83 06/15/25 19:52 Blood Pressure Position Sitting 06/15/25 19:52 Pulse Oximetry 96 06/15/25 19:52 Oxygen Delivery Method Room Air 06/15/25 19:52 Oxygen Flow Rate 0 06/15/25 19:52 Pain Level 8 06/15/25 19:52 Medical Decision Making 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 Has been able to bear weight with some difficulty. Has medial and anterior knee pain with palpation. No obvious deformity, distal CMS is intact. No other complaints or injuries. X-ray right ankle right knee pain ordered. X-ray showed no acute abnormality no evidence of fractures or dislocations. Will place patient in a lace up ankle splint and Sanket wrap of the right knee. Will instruct on RICE procedures and follow-up care. This text was generated using [employer] system, please disregard any oddities of phrase or misspellings. PFSH All Active Problems (Updated 06/15/25 @ 21:18 by Ese Rios NP) Right ankle sprain (Acute) Allergic rhinitis due to pollen (Chronic 11/30/17) ADHD (Chronic) Pt reports DX by PCP since childhood (1st grade). Dr. Lani Singleton - [facility]. New PCP @ [facility] most recent prescriber. Depression (Acute) Pt reports DX- Dr. Singleton at [facility] age 7/8 (?) Most recent prescriber through new PCP at [facility]. Medical History Asthma Hx of allergic rhinitis Irregular menstruation History of closed head injury PMS (premenstrual syndrome) Ankle pain, left Excessive sweating Atherosclerotic heart disease Vertigo Nursing difficulty Chest wall pain Gestational diabetes mellitus Exercise-induced asthma Surgical History No significant past surgical history Family History Maternal Grandmother Asthma Diabetes Maternal Aunt Depression Diabetes Maternal Grandfather Diabetes Maternal Aunt Heart disease Maternal Great Aunt Maternal Grandfather Hyperlipidemia Hypertension Stroke Other Breast cancer Social History Smoking/Tobacco Use Status: Never Smoking risk assessment performed?: Yes Alcohol Intake: never Drug use: Never Substance use type: does not use Housing: apartment Do you feel safe at home: Yes Do you feel safe in your relationship?: Yes Female Reproductive History Menstrual Age of Menarche: 10 control method: pills History History 2 Para 2 Hx # Term Pregnancies 2 Multiple births 0 Hx # Pregnancies 0 Ectopic pregnancies 0 AB induced 0 Hx Number of Living Children 2 AB spontaneous 0 Past Pregnancies Del. Date GA/Weeks # Preg Succ Route Wgt Sex Labor Lgth Anesthesia Location Prov Compl 08/05/21 39 No Yes vaginal 3118.448 g Male prodromal labor local [facility] [place] [place] 04/17/23 39 No Yes vaginal 3400 g Female LB Delivery Date: 08/05/21 Last Updated by: Hilary Hayes CNM Gestational Diabetes Aneudy Precipitous delivery reported Delivery Date: 04/17/23 Last Updated by: MD Marielos Alba
--- NOTE | 2025-06-15 21:15 | DI.[facility]_ITS ---
PROCEDURE INFORMATION: Exam: XR Right Knee Exam date and time: 06/15/2025 8:32 PM Age: 25 years old Clinical indication: Injury or trauma; Fall; Blunt trauma; Knee; Right; Injury date: 06/15/25; Additional info: Patient unable to bear weight on RT leg TECHNIQUE: Imaging protocol: Radiologic exam of the right knee. Views: 3 views. COMPARISON: CR XR ANKLE RT COMPLETE 06/15/2025 8:29 PM FINDINGS: Bones/joints: Normal. Soft tissues: Normal. IMPRESSION: No acute findings. Dictated and Authenticated by: Kwadwo Chairez MD. Orderin Gabriel Mulligan MD
--- NOTE | 2025-06-15 21:16 | DI.VRAD_ITS ---
PROCEDURE INFORMATION: Exam: XR Right Ankle Exam date and time: 06/15/2025 8:29 PM Age: 25 years old Clinical indication: Injury or trauma; Fall; Blunt trauma; Ankle; Right; Injury date: 06/15/25 TECHNIQUE: Imaging protocol: Radiologic exam of the right ankle. Views: 3 or more views. COMPARISON: CR XR ANKLE RT COMPLETE 04/28/2024 3:34 PM FINDINGS: Bones/joints: Normal. Soft tissues: Normal. IMPRESSION: No acute findings. Dictated and Authenticated by: Kwadwo Chairez MD. Orderin Gabriel Mulligan MD
[2025-06-15 21:41] VITALS: RESP 18
== END 2025-06-15 21:47 | disposition home or self-care (01) ==
PROVIDERS: Emergency Provider Registered Nurse Emergency; PCP Family Medicine
DX: S93.401A Sprain of unspecified ligament of right ankle, initial encounter (principal); M25.561 Pain in right knee; W01.198A Fall on same level from slipping, tripping and stumbling with subsequent striking against other object, initial encounter
CPT/HCPCS: 29515; 73562; 81025; 99284; 73610; 99283